=== PATIENT | male | born 1995 | race Caucasian/White ===

== ENCOUNTER → 2024-01-12 | Outpatient (CLI) | payer BC, SELFPAY ==
[2024-01-12 09:45] LABS: Hematocrit 51.3 % (40-54); Hemoglobin 17.4 g/dL (13.0-16.5); Mean Corp Hgb Conc 33.9 g/dL (32-36); Mean Corpuscular Hgb 30.1 pg (27.0-32.0); Mean Corpuscular Volume 88.8 fL (80-94); Mean Platelet Vol. 9.3 fl (6.2-12.0); Platelet Count 348 K/mm3 (150-450); RBC Distribution Width CV 11.9 % (11.6-14.6); RBC Distribution Width SD 38.2 fl (35.1-43.9); Red Blood Count 5.78 M/mm3 (4.6-6.2); White Blood Count 8.5 K/mm3 (4.4-11.0)
[2024-01-12 10:12] LABS: Anion Gap 6 (5-15); BUN 17 mg/dL (7-18); BUN/Creat Ratio 18.7 RATIO (10-20); Calcium,Total 9.4 mg/dL (8.5-10.1); Chloride 106 mmol/L (98-107); Creatinine, Serum 0.91 mg/dL (0.70-1.30); EST Glomerular Filtration Rate 105 mL/min (>60); Est Glom Filt Rate - Afr Amer 127 mL/min (>60); Glucose 99 mg/dL (74-106); LDH 191 U/L (87-241); Potassium 4.1 mmol/L (3.5-5.1); Sodium Level 139 mmol/L (136-145)
[2024-01-13 08:14] LABS: HCG BETA-SUBUNIT QUANT. 182 mIU/mL (0-3)
== END | disposition home or self-care (01) ==
PROVIDERS: Referring Provider Nurse Practitioner; Visit Provider Nurse Practitioner
DX: C62.10 Malignant neoplasm of unspecified descended testis (principal)
CPT/HCPCS: 36415; 80048; 82105; 83615; 84702; 85027

== ENCOUNTER 2024-01-13 14:21 | Day surgery (SDC) | payer BC, SELFPAY ==
[2024-01-13] VITALS (9 sets, daily range): BP systolic 89–135; BP diastolic 49–86; PULSE 72–111; RESP 13–18; TEMP 37.1–37.2; O2SAT 94–100; BMI 33.0
[2024-01-13] MEDS: Lactated Ringers 1,000 ML 15 ML IV (14:43)
--- NOTE | 2024-01-13 14:52 | PCM.PRE.AN2 ---
ASA Classification* ASA Classification ASA Classification: 1 Assessment & Plan Anesthesia* Anesthesia Assessment Anesthesia Assessment: Discussed sedation and/or anesthesia options, risks, benefits, and alternatives with patient/parents/legal guardian/POA. Questions invited. The patient/parents/legal guardian/POA seems to understand and agrees to proceed with anesthesia plan. Reviewed the physical assessment, medical history, allergy history and patient home medications list prior to surgery/procedure/anesthetic and documented any changes. Performed airway and anesthesia risk assessments. Anesthesia Type Anesthesia Type: General History Source History Obtained from:: Patient and Chart Anesthesia Focused Assessment* Temperature: 99.0 F Pulse Rate: 72 Blood Pressure: 135/86 Respiratory Rate: 18 Pulse Ox: 100 Oxygen Delivery Method: Room Air Airway Assessment Mouth opens: >3 cm Mallampati Score: III Teeth Condition: Intact Neck Range of motion (ROM): Full ROM Focused Labs Anesthesia Preop lab: CBC WBC 8.5 K/mm3 (4.4-11.0) 01/12/24 09:24 RBC 5.78 M/mm3 (4.6-6.2) 01/12/24 09:24 Hgb 17.4 g/dL (13.0-16.5) H 01/12/24 09:24 Hct 51.3 % (40-54) 01/12/24 09:24 Plt Count 348 K/mm3 (150-450) 01/12/24 09:24 CHEMISTRY Potassium 4.1 mmol/L (3.5-5.1) 01/12/24 09:24 Sodium 139 mmol/L (136-145) 01/12/24 09:24 BUN 17 mg/dL (7-18) 01/12/24 09:24 Creatinine 0.91 mg/dL (0.70-1.30) 01/12/24 09:24 Glucose 99 mg/dL (74-106) 01/12/24 09:24 COAG Pre-Assessment Diagnosis/Proposed Procedure Planned Operative Procedure(s): right orchiectomy, radical Anesthesia History 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 When Was Last Pacemaker Check QUESTION #4 FULL TEXT: You/Your Family Experience fever (hyperthermia) with Anesthesia Last Oral Intake Last Oral intake: Last Oral Intake NPO since 22:00 01/13/24 14:36 Meds taken in AM with sips of No 01/13/24 14:36 water? Meds patient instructed to take am of surgery PONV PONV - sales operations assistant: PONV - sales operations assistant Female No 01/12/24 11:35 HX of Motion Sickness No 01/12/24 11:35 HX of N/V After Surgery No 01/12/24 11:35 Non-Smoker Yes 01/12/24 11:35 Duration of Surgery greater Yes 01/12/24 11:35 than 60 minutes Number of Risk Factors 2 01/12/24 11:35 PONV Score Moderate Risk 01/12/24 11:35 Height & Weight Height & Weight: Anesthesia: Height & Weight Height 5 ft 8 in 01/13/24 14:36 Weight: 98.6 kg 01/13/24 14:36 Body Mass Index (BMI) 33.0 01/13/24 14:36 Respiratory Assessment Respiratory Assessment - sales operations assistant: Respiratory Tract Infection Hx - sales operations assistant Hx Respiratory Tract Infection No 01/12/24 11:35 STOP Sleep Apnea STOP Sleep Apnea - sales operations assistant: STOP Sleep Apnea - sales operations assistant Hx Hypertension No 01/12/24 11:35 Hx Sleep Apnea No 01/12/24 11:35 CPAP BIPAP Do you snore loudly (louder No 01/12/24 11:35 than talking or can be heard Do you often feel tired/ No 01/12/24 11:35 fatigued/ sleepy during daytime? Has anyone observed you stop No 01/12/24 11:35 breathing during sleep? STOP Results Negative 01/12/24 11:35 QUESTION #5 FULL TEXT : Do you snore loudly (louder than talking or can be heard through closed doors)? Tobacco Use History Tobacco Use History - sales operations assistant: Tobacco Use History - sales operations assistant Tobacco Use Smoking Status Never smoker 01/12/24 11:35 Hx Tobacco Use No 01/12/24 11:35 Years Smoking Packs Smoked per Day Smoking Cessation Date was within the last 15 years Hx Smoking Cessation Date Hx Smoking Cessation Counseling Hematologic Medial History Hematologic Hx - sales operations assistant: Hematologic Medical Hx - rn compliance Hx of Blood Transfusion Yes 01/12/24 11:35 Hx of Transfusion in last 3 No 01/12/24 11:35 Months Date of Last Transfusion (if within last 3 months) Ever experience any problems No 01/12/24 11:35 with transfusion(s)? Specify any problems Hx of Preganancy in last 3 N/A 01/12/24 11:35 Months Nurse Filling Out Transfusion NBUCHER 01/12/24 11:35 & Questions: Date: 01/12/24 01/12/24 11:35 Time: 11:36 01/12/24 11:35 Patient unable to answer at this time (ie. confused, unrespo /Reproduction History /Reproductive History - sales operations assistant: /Reproductive Hx- sales operations assistant Hx Now No 01/12/24 11:35 Gestational Age (in weeks): EDC: Hx Hx Para Hx Section SAB No 01/12/24 11:35 Active Medications Active Medications: Current Medications Generic Name Dose Route Start Last Admin Trade Name Freq PRN Reason Stop Dose Admin Cefazolin Sodium 2 gm/ N/A 20 mls @ 400 mls/hr 01/13/24 16:35 IV 01/13/24 16:37 PREOP ONE Lactated Ringer's 1,000 mls @ 15 mls/hr 01/13/24 14:45 01/13/24 14:43 IV 01/19/24 04:04 15 mls/hr .Q48H MICHELLE Administration Protocol PFSH Medical History Non-smoker Home Medications ?Medication ?Instructions ?Recorded ?Last Taken ?Type NK 01/12/24 Unknown History Allergy/AdvReac Type Severity Reaction Status Date / Time No Known Allergies Allergy Verified 01/12/24 11:35 Surgical History History of neck surgery (~2000) Social History Smoking Status: Never smoker Review of Systems (Anesthesia) ROS Narrative System reviewed and no additional complaints, except as documented.
[2024-01-13] MEDS: Cefazolin 2 GM in Syringe IV (15:20)
--- NOTE | 2024-01-13 15:21 | PCM.HP.STD ---
HPI - General General Date of Service: 01/13/24 Chief Complaint: Right testicular mass HPI Narrative RADHA CANALES, is a 28 M who presented to my office yesterday with a concern for a testicle lump on the right side ultrasound was done in the office that demonstrated solid mass in the right testicle, left testicle was completely normal. We had tumor markers done which came back abnormal. 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 PFS Medical History Non-smoker Home Medications ?Medication ?Instructions ?Recorded ?Last Taken ?Type cephalexin 500 mg capsule 500 mg PO Q8H #15 caps 01/13/24 Unknown Rx docusate sodium 100 mg capsule 100 mg PO BID #20 caps 01/13/24 Unknown Rx (Colace) oxycodone 5 mg tablet 5 mg PO Q6H PRN pain 3 days #14 01/13/24 Unknown Rx tabs Allergy/AdvReac Type Severity Reaction Status Date / Time No Known Allergies Allergy Verified 01/12/24 11:35 Surgical History History of neck surgery (~2000) Social History Smoking Status: Never smoker ROS Constitutional Constitutional: Denies chills, fever(s) or malaise Eyes Eyes: Denies blurry vision or change in vision ENT HEENT: Reports none Cardiovascular Cardiovascular: Denies chest pain or palpitations Respiratory/Chest Respiratory/Chest: Denies cough or shortness of breath with exertion Gastrointestinal Gastrointestinal: Denies abdominal pain, constipation or diarrhea Musculoskeletal Musculoskeletal: Denies back pain, joint stiffness or joint swelling Integumentary Integumentary: Denies dry skin, jaundice, lesions or rash Neurologic Neurologic: Denies confusion, syncope or weakness Psychiatric Psychiatric: Reports none; Denies anxiety or depression Endocrine Endocrinology: Denies excessive sweating, fatigue or flushing Hematologic/Lymphatic Hematologic/Lymphatic: Denies anemia, easy bleeding or easy bruising Vital Signs Vital Signs Vital Signs: 01/13/24 14:36 01/13/24 14:36 01/13/24 14:58 Temperature 99.0 F 99.0 F Temperature Source Temporal Pulse Rate 72 72 Respiratory Rate 18 18 Respiratory Pattern Normal Blood Pressure 135/86 H 135/86 H Blood Pressure Mean 102 Blood Pressure Source Monitor Blood Pressure Position Semi-Fowlers Blood Pressure Location Right Arm Pulse Ox 100 100 Oxygen Delivery Method Room Air Room Air Weight Weight: 98.6 kg Body Mass Index (BMI) 33.0 Physical Exam Narrative solid large mass in right testicle Const alert and oriented x3 General Appearance: cooperative HEENT normocephalic and head/scalp atraumatic Eyes PERRL and EOMs intact bilaterally Neck supple, no JVD and no carotid bruits Resp normal respiratory effort, normal air movement and clear to auscultation bilaterally Cardio regular rate and no murmurs GI normal to inspection, nondistended, normoactive bowel sounds and soft to palpation Extremity normal capillary refill General Extremity: no tenderness to palpation of joints or extremities; Negative for edema Skin no rashes or lesions noted and no wounds General Skin Exam: no breakdown Neuro CN's II-XII intact bilaterally Psych affect normal Appearance: appropriate Results Medical Records Data Attestation: I reviewed the patient's medical records Assessment & Plan Assessment/Plan (1) Testicle lump: PLAN: Plan to proceed with right radical orchiectomy
--- NOTE | 2024-01-13 15:22 | PCM.DC ---
Discharge Instructions Diet Discharge Diet: No restrictions, Light diet - advance as tolerated and Soft diet DC O2, CPAP, BIPAP needs Additional Home O2 Discharge instructions: No Dressing / Incision Discharge Activity: May Not Drive (if having pain.) and May Shower Return to work on:: 02/10/24 May shower in (days): 1 Dressing / Incision Call your doctor if your incision/area has: Increased Pain/ Swelling, Increased Redness, Foul Smelling Discharge and Swelling at the incision site Call your doctor if you observe: Fever of 101 or Higher and Uncontrolled pain Suture Line Care: Avoid Pulling/Pushing and Avoid Pinching/Bending Follow Up Care Please Follow Up With: Maico Membreno MD When: 7 days for a check up Test Results: Test results from this visit will be discussed in further detail at your follow-up appointment, if applicable. Discharge Plan Admission Primary Reason for Your Visit: Radical Right orchiectomy Attending Provider: Maico Membreno Primary Care Provider: Care Physician,No Primary Instructions Patient Instructions: Radical Orchiectomy Print Language: Grenadian Discharge Orders/Prescriptions Prescriptions: New cephalexin 500 mg capsule 500 mg PO Q8H Qty: 15 0RF oxycodone 5 mg tablet 5 mg PO Q6H PRN (Reason: pain) 3 Days Qty: 14 0RF docusate sodium [Colace] 100 mg capsule 100 mg PO BID Qty: 20 0RF Referrals / Follow Up: Maico Membreno MD [Med Staff - Active Staff] - Care Physician,No Primary [Primary Care Provider] - Disposition Disposition (needs filled in before D/C Order can be placed): Home, Self Care
[2024-01-13] MEDS: Bupivacaine Mpf 0.5% 30 ML VIAL (15:52)
--- NOTE | 2024-01-13 16:10 | OP.PCM_ITS ---
Operative Report (Standard) Operative Information Date of Procedure: 01/13/24 Pre-Operative Diagnosis: Right large testicle mass Post-Operative Diagnosis: The same Surgery/Procedure Performed: Right radical orchiectomy e commerce solution architect: No Type of Anesthesia: General RN Documented Start/Stop Times: Operation Date: 01/13/24 16:35 Case Time Into Pre-Op 01/13/24 14:30 Out of Pre-Op 01/13/24 15:17 Anesthesia Start 01/13/24 15:20 Into Room 01/13/24 15:20 Procedure Start 01/13/24 15:35 Procedure End 01/13/24 16:09 Procedure Start Time: 15:35 Procedure Stop Time: 16:10 Select all DRAINS/GRAFTS/IMPLANTS that apply: None Estimated Blood Loss: 5 cc Specimen collected: Yes Description of specimen(s) removed: Right testicle mass Description of surgery: 28-year-old male presented the office with the testicle lump on examination the large mass by ultrasound also to confirm the large mass in the right testicle, exam of the left testicle is normal and ultrasound left testicle is normal, he had preoperative serum tumor markers drawn, AFP, hCG and beta hCG, LDH. 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 Patient was taken back to the operating room after smooth induction of anesthesia he was placed supine on the table, the right inguinal area and groin and scrotum was shaved prepped and draped in usual sterile fashion made a incision in the right groin dissected to the skin dissected through Chris's fa scia using electrocautery to get to under under Chris's fascia and then opened up the inguinal canal identified the inguinal cord and testicle cord going to the right testicle I then freed this up and then was able to deliver the testicle from the scrotum into the inguinal incision and then a high ligation of the performed prior to mobilizing the testicle. I then placed 2 clamps on the spermatic cord transected the cord then suture-ligated the cord with 0 chromic stitch and then freehand tied the cord with 0 silk stitches. Then copiously irrigated the incision use electrocautery to obtain hemostasis there was no sign of bleeding irrigated incision again and then I closed the fascia over the inguinal canal and then closed the Chris's fascia over the top of this and then closed the skin with a running 4-0 Monocryl stitch Steri-Strips were placed dressing was placed fluffs and scrotal support was placed patient anesthetic was reversed taken back to PACU in good condition he will follow-up in the office in about 1 week for follow-up and a postop check and we will plan for referral to medical oncology. Surgical Findings: Large mass in the right testicle removed Complications Complications: No Admit VTE Documentation VTE Present on Admission: No VTE Mechan Device Prophylaxis: SCD's VTE Pharm Prophylaxis ordered?: No
--- NOTE | 2024-01-13 16:29 | PCM.POST.ANE ---
Anesthesia: Postop Eval I Current Vital Signs Temperature: 98.8 F Pulse Rate: 74 Blood Pressure: 90/49 Respiratory Rate: 13 Pulse Ox: 94 Oxygen Delivery Method: Room Air (with 100mm OA) Assessment Airway patent: Yes Spontaneous unlabored respirations: Yes Mental status: Asleep nausea: No Vomiting: No Anesthesia Complication: No Fluid Hydration Crystalloid volume administer (ml): 900 Total IV fluid infused: 900 Progress Note Anesthesia document: Postop Eval 1 completed: Yes
--- NOTE | 2024-01-13 16:35 | TEST_PTH ---
PATIENT: RADHA CANALES LOC: [facility] [place] U#:[id number] AGE/SX: 28/M ROOM: RE01/13/[address]: Dr. 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 No definite lymphovascular invasion identified. Margin negative for tumor. See cancer summary in the comment section. 01/26/2024 COMMENT TESTIS - RADICAL ORCHIECTOMY CANCER SUMMARY: Specimen type - radical orchiectomy Specimen laterality - Right Tumor focality - Unifocal Tumor Size - 8.0 x 5.0 x 4.5c Histologic type - Malignant germ cell tumor: Teratoma - 60%, Seminoma - 20%, Yolk sac tumor - 15%, Embryonal carcinoma - 5% Tumor extension - Tumor limited to testis Margins: Spermatic cord margin - Uninvolved by tumor Other margins - Uninvolved by tumor Lymphovascular invasion - Not identified Regional lymph nodes: No known lymph nodes are submitted or found Distant metastasis - Not applicable Pre-orchiectomy serum tumor markers: Alpha-feto protein evaluation: 5309 ng/ml, N- 0.0-5.7) Beta subunit of human chronic gonadotropin elevation: 182 mIU/ml (N - 0.3) LDH: 191 U/L (N -87-241) Post orchiectomy seum tumor markers: not available Serum tumor markers: LDH - normal limit. HCG - S1 (<5000 units) AFP elevation - S2 (5309 ng/ml) Additional pathologic findings - Germ cell neoplasia in situ. - Extensive tumor necrosis. PATHOLOGIC STAGE: pT1b pNx pMx The above summary is in compliance with [employer] (CAP) Cancer Protocols Checklist and [place] [employer] Committee on Cancer (AJCC), Staging Manual, 8th Ed. The specimen is sent to [facility] for expert opinion, reviewed by Dr. Koch and the above diagnosis is rendered. The complete report is viewable in the patient's EMR. Case has been reviewed in consultation with Dr. Pena who concurs with the above diagnosis. IDC:AM MICROSCOPIC DESCRIPTION Slides are reviewed. GROSS DESCRIPTION Received in fixative is one container labeled with the patient's name and designated Right testicular mass. The specimen consists of a testis with detached spermatic cord and vascular tissue. The testis measures 8.0 x 5.5 x 5.3cm and weighs 64 gm. The distal spermatic cord along with fibrovascular tissue measures 5.0cm in length and 1.5cm in diameter. The external surface is smooth and glistening and is inked. Sections of testis reveal pink-white mass with extensive necrosis that involves approximately 95% of the testis. The mass measures 8.0 x 5.0 x 4.5cm. No extension beyond the tunica vaginalis is identified. Rn Surgery Icu sections are submitted in ten cassettes as follows: 1- spermatic cord and soft tissue with margin of resection, 2-10- tumor. NOTE: Sections are submitted after additional fixation. [facility] 01/17/2024 Additional sections area submitted as follows: 11 - more section spermatic cord, 12 to 14 - additional sections of tumor. [facility] 01/19/2024 TC:0 CPT:05071
[2024-01-13] MEDS: Ketorolac 15 MG/ML Vial IV (16:57)
--- NOTE | 2024-01-13 17:59 | PCM.POSTANE2 ---
Anesthesia Postop Eval I Sum Postop Eval Completion status Anesthesia document: Postop Eval 1 completed: Yes Anesthesia Postop Eval I Summary Anesthesia Postop Eval I Summary: Anesthesia Postop Eval I: Assessment Summary Airway patent Yes 01/13/24 16:30 [email or web address] Spontaneous unlabored Yes 01/13/24 16:30 [email or web address] respirations Mental status Asleep 01/13/24 16:30 [email or web address] nausea No 01/13/24 16:30 [email or web address] Vomiting No 01/13/24 16:30 [email or web address] Anesthesia Postop Eval I: Fluid Summary Crystalloid volume administer 900 01/13/24 16:30 [email or web address] (ml) Colloids volume administered ( ml) Blood Product volume administered (ml) Total IV fluid infused 900 01/13/24 16:30 [email or web address] Anesthesia Postop Eval I: Summary Notes Anesthesia Complication No 01/13/24 16:30 [email or web address] Anesthesia Complication Comment: Post-operative progress note Anesthesia: Postop Eval II Evaluation Mental status: Awake Pain Level: 0 nausea: No Vomiting: No
== END 2024-01-13 18:07 | disposition home or self-care (01) ==
LOC: SDC 14:22 → AC 14:23
PROVIDERS: Referring Provider Urology; Visit Provider Urology
PROC: (CPT 54530; principal; 2024-01-13 16:20)
DX: N50.89 Other specified disorders of the male genital organs (principal)
CPT/HCPCS: 54530; 00926; 88309; J2405

== ENCOUNTER → 2024-01-19 | Outpatient (CLI) | payer BC, SELFPAY ==
--- NOTE | 2024-01-19 11:25 | CT_ITS ---
STUDY: CT CHEST, ABDOMEN T PELVIS WITH CONTRAST REASON FOR EXAM: Male, 28 years old. MALIGNANT NEOPLASM OF TESTIS RADIATION DOSAGE (If Supplied By Facility): CTDIvol = ( 14.85 ) mGy, DLP = ( 1634.46 ) mGycm TECHNIQUE: Transaxial imaging was performed following intravenous administration of IV 100mL Isovue-300. Multiplanar coronal and sagittal images were reformatted. The protocol utilizes one or more of the following dose reduction techniques: automated exposure control, adjustment of mA and/or kV according to patient size,and/or use of iterative reconstruction technique. COMPARISON: No relevant prior comparison study available FINDINGS: CHEST The lungs are normal. There is no demonstrated pleural abnormality. Normal heart and pericardium. There are no coronary artery calcifications. Normal mediastinum. Normal hilar regions. Normal unenhanced pulmonary arteries. Normal aorta arch and descending thoracic aorta. Normal osseous structures. ABDOMEN Normal liver. Normal gallbladder and extrahepatic biliary system. Normal spleen. Normal pancreas. Normal bilateral adrenal glands. Normal right kidney. Normal left kidney. Normal visualized stomach. Normal small intestine. Normal colon. There is non-visualization of the appendix. Normal abdominal aorta. Normal inferior vena cava. Normal retroperitoneum. Normal abdominal wall. Normal osseous structures. PELVIS Normal urinary bladder. There is no pelvic fluid. There is no pelvic lymphadenopathy or mass lesion. Normal visualized pelvic arteries. There is mild stranding within the right inguinal region associated with few subcutaneous foci of air consistent with recent surgical intervention. Normal osseous structures. CT/CT Chest, Abd, Pel w/Contrast IMPRESSION: No evidence of metastases within the chest, abdomen and pelvis. Postsurgical changes within the right inguinal region. Electronically Signed: Jemima Ross MD at 12:45 EST ,
== END | disposition home or self-care (01) ==
PROVIDERS: Referring Provider Nurse Practitioner; Visit Provider Nurse Practitioner
DX: C62.10 Malignant neoplasm of unspecified descended testis (principal)
CPT/HCPCS: 71260; 74177; Q9967

== ENCOUNTER → 2024-03-01 | Outpatient (CLI) | payer BC, SELFPAY ==
[2024-03-02 12:36] LABS: LDH 242 U/L (87-241)
[2024-03-03 04:07] LABS: AFP, Tumor Marker 11.4 ng/mL (0.0-5.7)
[2024-03-03 05:07] LABS: HCG BETA-SUBUNIT QUANT. < 1 mIU/mL (0-3)
== END | disposition home or self-care (01) ==
PROVIDERS: Referring Provider Internal Medicine Hematology & Oncology; Visit Provider Internal Medicine Hematology & Oncology
DX: C62.91 Malignant neoplasm of right testis, unspecified whether descended or undescended (principal)
CPT/HCPCS: 82105; 83615; 84702

== ENCOUNTER → 2024-05-17 | Outpatient (CLI) | payer BC, SELFPAY ==
--- NOTE | 2024-05-17 07:53 | RAD_ITS ---
EXAM: XR Chest, 2 Views CLINICAL INDICATION: F/U TESTICULAR CANCER TECHNIQUE: Frontal and lateral views of the chest. COMPARISON: No relevant prior studies available. FINDINGS: LUNGS AND PLEURAL SPACES: Unremarkable. No consolidation. No pneumothorax. HEART: Unremarkable. No cardiomegaly. MEDIASTINUM: Unremarkable. Normal mediastinal contour. BONES/JOINTS: Unremarkable. No acute fracture. RAD/Chest PA and Lateral IMPRESSION: No acute cardiopulmonary process. Reading Location: [facility]
--- NOTE | 2024-05-17 08:16 | CT_ITS ---
PROCEDURE: ABDOMEN/PELVIS W IV CONT ONLY 05/17/2024 REASON FOR EXAM: F/U TESTICULAR CANCER TECHNIQUE: Abdomen and pelvis CT with intravenous contrast. Coronal and Sagittal reconstruction series were provided. PATIENT PREPARATION: Per protocol ORAL CONTRAST TYPE: None. AMOUNT: mL CONTRAST: Omnipaque 350 VOLUME: 100 mL Not Provided Gauge IV One or more dose reduction techniques were used (e.g., Automated exposure control, adjustment of the mA and/or kV according to patient size, use of iterative reconstruction technique. COMPARISON: None FINDINGS: Lung bases: Unremarkable Liver: Homogeneous attenuation. No focal lesion. Gallbladder: No ductal dilation. No cholelithiasis or wall thickening. Spleen: Normal size. Pancreas: Normal size without evidence of mass surrounding inflammation or ductal dilation. Adrenals: Unremarkable. Kidneys: Normal renal sizes. No hydronephrosis. Bladder: Urinary bladder is unremarkable. Reproductive Organs: Status post right orchiectomy. Bowel: Stomach is unremarkable. No bowel dilation or wall thickening. Moderate colonic stool. Appendix is not visualized. Appendix: The appendix is not identified. There is no inflammatory process identified in the right lower quadrant to suggest appendicitis. Lymph nodes: No suspicious lymph node enlargement. Vasculature: The abdominal aorta and IVC are normal. Peritoneum / Retroperitoneum: No ascites. No pneumoperitoneum. Bones: No suspicious osseous lesions. Soft tissue: Unremarkable CT/Abdomen/Pelvis W IV Cont ONLY IMPRESSION: No evidence of metastatic disease in the abdomen and pelvis. Reading [facility]
== END | disposition home or self-care (01) ==
LOC: CT 07:49
PROVIDERS: Referring Provider Internal Medicine Hematology & Oncology; Visit Provider Internal Medicine Hematology & Oncology
DX: C62.91 Malignant neoplasm of right testis, unspecified whether descended or undescended (principal)
CPT/HCPCS: 71046; 74177; Q9967

== ENCOUNTER → 2024-09-26 | Outpatient (CLI) | payer BC, SELFPAY ==
--- NOTE | 2024-09-26 07:05 | RAD_ITS ---
PROCEDURE: CHEST PA AND LATERAL 09/26/2024 REASON FOR EXAM: F/U TESTICULAR CANCER TECHNIQUE: CHEST PA AND LATERAL COMPARISON: Chest x-ray of 05/17/2024. RAD/Chest PA and Lateral IMPRESSION: Residual contrast material is seen within the visualized portions of the urinar y tract. Lungs appear clear of acute disease. No focal abnormality is noted. The cardiomediastinal silhouette is within the normal range. No pleural effusion or pneumothorax is noted. The cardiomediastinal silhouette is within the normal range, and unchanged. No significant osseous abnormality is seen. Negative examination. Reading Location: [place] [id number]
--- NOTE | 2024-09-26 07:05 | CT_ITS ---
PROCEDURE: ABDOMEN/PELVIS W IV CONT ONLY 09/26/2024 REASON FOR EXAM: F/U right TESTICULAR CANCER TECHNIQUE: ABDOMEN/PELVIS W IV CONT ONLY Coronal and Sagittal reconstruction series were provided. One or more dose reduction techniques were used (e.g., Automated exposure control, adjustment of the mA and/or kV according to patient size, use of iterative reconstruction technique. RADIATION DOSE SUMMARY: CTDlvol: 32.01 mGy DLP: 1347.43 mGycm COMPARISON: CT examination of 05/17/2024 FINDINGS: Lung bases: Unremarkable Liver: Normal size. No mass. Gallbladder: Unremarkable. Spleen: Normal size. Pancreas: Normal size without evidence of mass surrounding inflammation or ductal dilation. Adrenals: Unremarkable. Kidneys: Normal renal sizes. No hydronephrosis. Bladder: Unremarkable. Bowel: No bowel obstruction. Appendix: The appendix is not identified. There is no inflammatory process identified in the right lower quadrant to suggest appendicitis. Lymph nodes: No suspicious lymph node enlargement. Vasculature: The abdominal aorta and IVC are normal. Peritoneum / Retroperitoneum: No free fluid is seen. Bones: Unremarkable. CT/Abdomen/Pelvis W IV Cont ONLY IMPRESSION: No evidence of malignancy or adenopathy. No acute process is seen. Reading Location: [place] [id number]
--- OUTSIDE RECORDS SUMMARY | 2024-09-26 07:10 | XMS RPT_ITS | CCD ---
Author Organization [facility] [facility] Care Team Providers Care Foot Caster Name Role Phone Unavailable Primary Care Provider Unavailabl e Care Physician, No Primary Primary Care Provider Unavailable Shaquille PHELAN, Dr. Patel Attending Provider Haseeb PHELAN, Dr. Maico Ha Referring Provider Care Physician, No Primary Referring Provider Un available Dr. Jorge Corbin MD Referring Provider [phone] Care Physician, No Primary Primary Care Unava ilable Isckarus, Jorge Attending Unavailable Isckar, Jorge Referring Unavailable Care Physician, No Primary Primary Care Unava ilable Isckarus, Jorge Attending Unavailable Care Physician, No Primary Referring Unava ilable Isckarus, Jorge Referring Unavailable Care Physician, No Primary Primary Care Unava ilable Isckarus, Jorge Attending Unavailable Care Physician, No Primary Primary Care Unava ilable Isckarus, Jorge Attending Unavailable Isckarus, Jorge Referring Unavailable Boxford, Helen Attending Unavailable Boxford, Helen Referring Unavailable Care Physician, No Primary Primary Care Unava ilable Boxford, Helen Attending Unavailable Boxford, Helen Referring Unavailable Care Physician, No Primary Primary Care Unava ilable Maico Membreno Attending Unavailable Maico Membreno Referring Unavailable Care Physician, No Primary Primary Care Unava ilable Care Physician, No Primary Primary Care Unava ilable Isckarus, Jorge Attending Unavailable Maico Membreno Referring Unavailable Care Physician, No Primary Referring Unava ilable Care Physician, No Primary Primary Care Unava ilable Isckarus, Jorge Attending Unavailable Care Physician, No Primary Referring Unava ilable Isckarus, Jorge Attending Unavailable Care Physician, No Primary Primary Care Unava ilable Care Physician, No Primary Primary Care Unava ilable Kennedi Hickman Attending Unavailable Jorge Corbin Attending Unavailable Care Physician, No Primary Primary Care Unava ilable Care Physician, No Primary Referring Unava ilable Care Physician, No Primary Primary Care Provider Unavailable Care Physician, No Primary Referring Provider Un available Shaquille PHELAN, Dr. Patel Attending Provider [phone] Dr. Jorge Corbin MD Referring Provider [phone] Medications Current Medications Medication Drug Class(es) Dates Sig (Normalized) Sig (Original) amoxicillin 875 mg oral tablet (1 source) Penicillin-class Antibacterial Start: 01-31-2024 End: 02-07-2024 take 1 tablet by mouth twice daily amoxicillin (AMOXIL) 875 mg tablet Take 1 tablet by mouth two times a day for 7 days. 14 tablet 01/31/2024 02/07/2024 Active loratadine 10 mg oral tablet (2 sources) Start: 02-15-2024 take 1 capsule by mouth once daily Loratadine (Allergy Relief (Loratadine)) 10 mg capsule Active 10 mg PO daily February 15, 2024 1:00am Completed/Discontinued Medications Medication Drug Class(es) Dates Sig (Normalized) Sig (Original) cephalexin 500 mg oral capsule (2 sources) Cephalosporin Antibacterial Start: 01-13-2024 End: 02-15-2024 take 1 capsule by mouth every eight hours Cephalexin 500 mg capsule Discontinued 500 mg PO Q8H January 13, 2024 1:00am February 15, 2024 12:53pm docusate sodium 100 mg oral capsule (2 sources) Start: 01-13-2024 End: 01-26-2024 take 1 capsule by mouth twice daily Docusate Sodium (Colace) 100 mg capsule Discontinued 100 mg PO TWICE A DAY January 13, 2024 1:00am January 26, 2024 10:33am fluticasone propionate 0.05 mg/actuat metered dose nasal spray (3 sources) Corticosteroid Start: 02-15-2024 End: 07-11-2024 take 50 ug nasal route once daily Fluticasone Propionate (Flonase Allergy Relief) 50 mcg/actuation spray,suspension Discontinued 1 NMA INTRANASAL daily February 15, 2024 1:00am July 11, 2024 11:39am administer into each nostril Start: 01-19-2016 take 2 spray(s) by m out once daily fluticasone (FLONASE) 50 mcg/actuation nasal spray Indications: Dysfunction of Eustachian tube, bilateral Use 2 Sprays in each nostril once daily. Rinse mouth after use. 1 Bottle 11 01/19/2016 Active oxyCODONE hydrochloride 5 mg oral tablet (2 sources) Opioid Agonist Start: 01-13-2024 End: 01-26-2024 take 1 tablet by mouth every six hours as needed for pain Oxycodone 5 mg tablet Discontinued 5 mg PO EVERY 6 HOURS as needed for pain 14 3 January 13, 2024 January 26, 2024 10:33am Problems Active Problems Problem Classification Problem Date Documented Da te Episodic/Chronic Cancer of testis (12 sources) Non-seminomatous germ cell neoplasm of testis; Translations: [Malignant neoplasm of unspecified testis, unspecified whether descended or undescended] Onset: 02-21-2024 01-26-2024 Chronic Mood disorders (1 source) Depressive disorder; Translations: [Depression] Onset: 11-08-2011 11-08-2011 Chronic Otitis media and related conditions (1 source) Acute non-suppurative otitis media - serous; Translations: [Acute serous otitis media, left ear] 01-31-2024 Episodic Past or Other Problems Problem Classification Problem Date Documented Da te Episodic/Chronic Other male genital disorders (1 source) Other specified disorders of the male genital organs; Translations: [Other specified disorders of the male genital organs] Onset: 01-13-2024 Episodic Results Test Name Value Interpretation Reference Range Facility Oncology Visit Reporton Oncology Visit Report [facility] [address] [place] [address] OFFICE VISIT Date of Service: 07/11/24 1137 MR#: [id number] Acct: [id number] Name: PARKERRADHA JOLLY Rep #: [id number] : 1995 From: Jorge Corbin MD Age/Sex: 28/M [place] [facility] [place]: Signed HPI Subjective Date of Service 07/11/24 Chief Complaint Testicular cancer follow-up History of Present Illness 28-year-old male who presented with a progressively enlarging right testicular mass over the course of 6 months. Testicular ultrasound confirmed a solid mass. Preoperative tumor markers alpha-fetoprotein and bHCG were elevated, LDH was normal (see lab section) January 13, 2024 right radical orchiectomy: Full pathology report is pending. [facility] IHC consistent with a malignant germ cell tumor composed of teratoma (60%), seminoma (20%), yolk sac tumor (15%) and embryonal carcinoma (5%), germ cell neoplasia in situ was present, no definite lymphovascular invasion identified and margins were negative. January 19, 2024 CT chest abdomen and pelvis: IMPRESSION: No evidence of metastases within the chest, abdomen and pelvis. Postsurgical changes within the right inguinal region. 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 Social History Smoking Status: Never smoker alcohol intake: never ROS Constitutional Constitutional: Reports systems reviewed and no addt'l complaints, except as documented; Denies fatigue, fever(s) or weight loss Eyes Eyes: Reports systems reviewed and no addt'l complaints, except as documented ENT HEENT: Reports systems reviewed and no addt'l complaints, except as documented Cardiovascular Cardiovascular: Reports systems reviewed and no addt'l complaints, except as documented; Denies chest pain or edema Respiratory/Chest Respiratory/Chest: Reports systems reviewed and no addt'l complaints, except as documented; Denies cough or dyspnea Gastrointestinal Gastrointestinal: Reports systems reviewed and no addt'l complaints, except as documented and other Details: Had diarrhea while on antibiotics. ; Denies change in bowel habits Genitourinary Genitourinary: Reports systems reviewed and no addt'l complaints, except as documented and other Details: Right inguinal swelling and discomfort postop Musculoskeletal Musculoskeletal: Reports systems reviewed and no addt'l complaints, except as documented; Denies back pain Integumentary Integumentary: Reports systems reviewed and no addt'l complaints, except as documented; Denies new lesions Neurologic Neurologic: Reports systems reviewed and no addt'l complaints, except as documented; Denies focal weakness or paresthesias Psychiatric Psychiatric: Reports systems reviewed and no addt'l complaints, except as documented Endocrine Endocrinology: Reports systems reviewed and no addt'l complaints, except as documented Hematologic/Lymphatic Hematologic/Lymphatic: Reports systems reviewed and no addt'l complaints, except as documented Allergic/Immunologic Allergic/Immunologic: Reports systems reviewed and no addt'l complaints, except as documented Intake Vital Signs 04/19/24 13:21 07/11/24 11:38 07/11/24 11:39 Height 5 ft 8 in 5 ft 8 in 5 ft 8 in Weight: 102.682 kg 109.316 kg BMI 34.4 36.6 BP 116/76 121/76 H Blood Pressure Location Lt brachial Lt brachial Position Sitting Sitting Respiration 18 18 Pulse 60 74 Pulse Source Monitor Monitor Temp 98.6 F 98.4 F Temperature Source Temporal Artery Temporal Artery Pulse Oximetry (%) 98 96 Oxygen Delivery Method room air room air Intake Is patient in pain?: No Allergies No Known Allergies Allergy (Verified 07/11/24 11:39) Medications ???Medication ???Instructions ???Recorded ???Confirmed ???Type loratadine 10 mg capsule (Allergy 10 mg PO QDAY 02/15/24 07/11/24 H istory Relief (loratadine)) Have you fallen in the past year?: No Central Venous Access Central Venous Access: No Laboratory Tests 01/12/24 01/26/24 02/02/24 09:24 10:12 13:45 Lactate Dehydrogenase 191 151 209 Tumor Marker AFP 5309.0 H 616.0 H 259.0 H HCG Beta Subunit 182 H 1 < 1 02/09/24 02/15/24 02/23/24 09:39 11:15 15:52 Lactate Dehydrogenase 160 161 176 Tumor Marker AFP 128.0 H 56.5 H 23.3 H HCG Beta Subunit < 1 < 1 < 1 03/01/24 03/07/24 03/14/24 16:37 09:45 10:37 Lactate Dehydrogenase 242 H 230 Tumor M (more content not included)... Normal [facility] AFP, Tumor Markeron 07-06-19 AFP TUMOR CARL 2.9 ng/mL Normal 0.0-5.7 [facility] Comment on above: Order Comment: N Result Comment: [facility] Electrochemiluminescence Immunoassay (ECLIA) Values obtained with different assay methods or kits cannot be used interchangeably. Results cannot be interpreted as absolute evidence of the presence or absence of malignant disease. This test is not interpretable in females. Performed at: [address] [id number] Repeat Chief: Reyes Khoury PhD, Phone: [phone] Performed By: #### L 3300.0700, L504.2610, L3100.5140 #### [facility] [address] [place], [place], [id number] HCG BETA-SUBUNIT QUANT.on HCG B-SUBUNIT < 1 Normal 0-3 [facility] Comment on above: Result Comment: [facility] ECLIA methodology Performed at: [address] [id number] Repeat Chief: Reyes Khoury PhD, Phone: [phone] Performed By: #### L 3300.0700, L504.2610, L3100.5140 #### [facility] [address] [place], [place], [id number] LDHon 07-04-2024 LDH 170 U/L Normal 87-241 [facility] Comment on above: Order Comment: 1 Performed By: #### L 3300.0700, L504.2610, L3100.5140 #### [facility] [address] [place], [address] Lactate dehydrogenase (LDH) measurementOrdered By: Jorge Corbin on 07-04-2024 LDH [Catalytic activity/Vol] 170 U/L 87-241 [facility] Abdomen/Pelvis W IV Cont ONL Yon 05-17-2024 Abdomen/Pelvis W IV Cont ONLY [facility] Imaging Services [address] [place], [place] [address] Abdomen/Pelvis W IV Cont ONLY MR#: [id number] Acct: [id number] Name: RADHA CALDERON Rep #: [id number] : 1995 M 28 From: Hebert duval MD PCP: Care Physician,No Primary Status: DEP CLI Study: Abdomen/Pelvis W IV Cont ONLY Date of Exam: Exam# [id number] Ordering Dr: Jorge Corbin MD ADDENDUM by Dr. Hebert Whitmore MD on 05/27/24 at 0938 Comparison made to the CT of the chest, abdomen and pelvis from 01/19/2024 Reading Location: [facility] 05/27/24 0938 Date cc: Dr. Jorge Corbin MD; No Primary Care Physician * Signed PROCEDURE: ABDOMEN/PELVIS W IV CONT ONLY 05/17/2024 REASON FOR EXAM: F/U TESTICULAR CANCER TECHNIQUE: Abdomen and pelvis CT with intravenous contrast. Coronal and Sagittal reconstruction series were provided. PATIENT PREPARATION: Per protocol ORAL CONTRAST TYPE: None. AMOUNT: mL CONTRAST: Omnipaque 350 VOLUME: 100 mL Not Provided Gauge IV One or more dose reduction techniques were used (e.g., Automated exposure control, adjustment of the mA and/or kV according to patient size, use of iterative reconstruction technique. COMPARISON: None FINDINGS: Lung bases: Unremarkable Liver: Homogeneous attenuation. No focal lesion. Gallbladder: No ductal dilation. No cholelithiasis or wall thickening. Spleen: Normal size. Pancreas: Normal size without evidence of mass surrounding inflammation or ductal dilation. Adrenals: Unremarkable. Kidneys: Normal renal sizes. No hydronephrosis. Bladder: Urinary bladder is unremarkable. Reproductive Organs: Status post right orchiectomy. Bowel: Stomach is unremarkable. No bowel dilation or wall thickening. Moderate colonic stool. Appendix is not visualized. Appendix: The appendix is not identified. There is no inflammatory process identified in the right lower quadrant to suggest appendicitis. Lymph nodes: No suspicious lymph node enlargement. Vasculature: The abdominal aorta and IVC are normal. Peritoneum / Retroperitoneum: No ascites. No pneumoperitoneum. Bones: No suspicious osseous lesions. Soft tissue: Unremarkable CT/Abdomen/Pelvis W IV Cont ONLY IMPRESSION: No evidence of metastatic disease in the abdomen and pelvis. Reading Location: [facility] CC: Dr. Jorge Corbin MD; No Primary Care Physician Massage Operator: Signed Normal [facility] Chest PA and Lateralon 05-17 Chest PA and Lateral [facility] [address] [place] [address] Chest PA and Lateral MR#: [id number] Acct: [id number] Name: RADHA CALDERON Rep #: [id number] : 1995 M 28 From: aCrl Hoyos MD PCP: Care Physician,No Primary Status: REG CLI Study: Chest PA and Lateral Date of Exam: 05/17/24 Exam# [id number] Ordering Dr: Jorge Corbin MD EXAM: XR Chest, 2 Views CLINICAL INDICATION: F/U TESTICULAR CANCER TECHNIQUE: Frontal and lateral views of the chest. COMPARISON: No relevant prior studies available. FINDINGS: LUNGS AND PLEURAL SPACES: Unremarkable. No consolidation. No pneumothorax. HEART: Unremarkable. No cardiomegaly. MEDIASTINUM: Unremarkable. Normal mediastinal contour. BONES/JOINTS: Unremarkable. No acute fracture. RAD/Chest PA and Lateral IMPRESSION: No acute cardiopulmonary process. Reading Location: [facility] CC: Dr. Jorge Corbin MD; No Primary Care Physician Massage Operator: Signed Normal [facility] Oncology Visit Reporton 04-07 Oncology Visit Report [facility] [address] [facility] [place] [address] OFFICE VISIT Date of Service: 04/19/24 1318 MR#: [id number] Acct: [id number] Name: RADHA CALDERON Rep #: [id number] : 1995 From: Jorge Corbin MD Age/Sex: 28/M Location: [facility] Status: Signed HPI Subjective Date of Service 04/19/24 Chief Complaint Testicular cancer follow-up History of Present Illness 28-year-old male who presented with a progressively enlarging right testicular mass over the course of 6 months. Testicular ultrasound confirmed a solid mass. Preoperative tumor markers alpha-fetoprotein and bHCG were elevated, LDH was normal (see lab section) January 13, 2024 right radical orchiectomy: Full pathology report is pending. [facility] IHC consistent with a malignant germ cell tumor composed of teratoma (60%), seminoma (20%), yolk sac tumor (15%) and embryonal carcinoma (5%), germ cell neoplasia in situ was present, no definite lymphovascular invasion identified and margins were negative. January 19, 2024 CT chest abdomen and pelvis: IMPRESSION: No evidence of metastases within the chest, abdomen and pelvis. Postsurgical changes within the right inguinal region. 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 Social History Smoking Status: Never smoker alcohol intake: never ROS Constitutional Constitutional: Reports systems reviewed and no addt'l complaints, except as documented; Denies fatigue, fever(s) or weight loss Eyes Eyes: Reports systems reviewed and no addt'l complaints, except as documented ENT HEENT: Reports systems reviewed and no addt'l complaints, except as documented Cardiovascular Cardiovascular: Reports systems reviewed and no addt'l complaints, except as documented; Denies chest pain or edema Respiratory/Chest Respiratory/Chest: Reports systems reviewed and no addt'l complaints, except as documented; Denies cough or dyspnea Gastrointestinal Gastrointestinal: Reports systems reviewed and no addt'l complaints, except as documented and other Details: Had diarrhea while on antibiotics. ; Denies change in bowel habits Genitourinary Genitourinary: Reports systems reviewed and no addt'l complaints, except as documented and other Details: Right inguinal swelling and discomfort postop Musculoskeletal Musculoskeletal: Reports systems reviewed and no addt'l complaints, except as documented; Denies back pain Integumentary Integumentary: Reports systems reviewed and no addt'l complaints, except as documented; Denies new lesions Neurologic Neurologic: Reports systems reviewed and no addt'l complaints, except as documented; Denies focal weakness or paresthesias Psychiatric Psychiatric: Reports systems reviewed and no addt'l complaints, except as documented Endocrine Endocrinology: Reports systems reviewed and no addt'l complaints, except as documented Hematologic/Lymphatic Hematologic/Lymphatic: Reports systems reviewed and no addt'l complaints, except as documented Allergic/Immunologic Allergic/Immunologic: Reports systems reviewed and no addt'l complaints, except as documented Intake Vital Signs 03/14/24 12:02 04/19/24 13:20 04/19/24 13:21 Height 5 ft 8 in 5 ft 8 in 5 ft 8 in Weight: 102.682 kg BMI 34.4 BP 116/76 Blood Pressure Location Lt brachial Position Sitting Respiration 18 Pulse 60 Pulse Source Monitor Temp 98.6 F Temperature Source Temporal Artery Pulse Oximetry (%) 98 Oxygen Delivery Method room air Intake Is patient in pain?: No Allergies No Known Allergies Allergy (Verified 04/19/24 13:21) Medications ???Medication ???Instructions ???Recorded ???Confirmed ???Type fluticasone propionate 50 1 spray intranasal QDAY 02/15/24 0 04/19/24 History mcg/actuation nasal spray,suspension (Flonase Allergy Relief) loratadine 10 mg capsule (Allergy 10 mg PO QDAY 02/15/24 04/19/24 H istory Relief (loratadine)) Have you fallen in the past year?: No Central Venous Access Central Venous Access: No Laboratory Tests 01/12/24 01/26/24 02/02/24 09:24 10:12 13:45 Lactate Dehydrogenase 191 151 209 Tumor Marker AFP 5309.0 H 616.0 H 259.0 H HCG Beta Subunit 182 H 1 < 1 02/09/24 02/15/24 02/23/24 09:39 11:15 15:52 Lactate Dehydrogenase 160 161 176 Tumor Marker AFP 128.0 H 56.5 H 23.3 H HCG Beta Subunit < 1 < 1 < 1 03/01/24 03/07/24 03/14/24 16 (more content not included)... Normal [facility] AFP, Tumor Markeron 04-14-19 AFP TUMOR CARL 2.7 ng/mL Normal 0.0-5.7 [facility] Comment on above: Order Comment: N Result Comment: [facility] Electrochemiluminescence Immunoassay (ECLIA) Values obtained with different assay methods or kits cannot be used interchangeably. Results cannot be interpreted as absolute evidence of the presence or absence of malignant disease. This test is not interpretable in females. Performed at: [address] [id number] Repeat Chief: Reyes Khoury PhD, Phone: [phone] Performed By: #### L 3300.0700, L504.2610, L3100.5140 #### [facility] [address] [place], [address] HCG BETA-SUBUNIT QUANT.on HCG B-SUBUNIT < 1 Normal 0-3 [facility] Comment on above: Result Comment: [facility] ECLIA methodology Performed at: [address] [id number] Repeat Chief: Reyes Khoury PhD, Phone: [phone] Performed By: #### L 3300.0700, L504.2610, L3100.5140 #### [facility] [address] [place], [address] Alpha fetoprotein measuremen t as tumor markerOrdered By: Jorge Corbin on 04-12-2024 Tumor Marker Alpha Fetoprotein 2.7 ng/mL 0.0-5.7 [facility] Comment on above: [facility] El ectrochemiluminescence Immunoassay(ECLIA)Values obtained with different assay methods or kits cannotbe used interchangeably. Results cannot be interpreted asabsolute evidence of the presence or absence of malignantdisease.This test is not interpretable in females.Performed at: [address] [id number] Director: Reyes Khoury PhD, Phone: [phone] HCG, beta, subunitOrdered By : Jorge Corbin on 04-12-2024 HCG Beta Subunit < 1 mIU/mL 0-3 [facility] Comment on above: [facility] ECLIA methodol ogyPerformed at: [address] [id number] Director: Reyes Khoury PhD, Phone: [phone] LDHon 04-12-2024 LDH 183 U/L Normal 87-241 [facility] Comment on above: Order Comment: 1 Result Comment: Hemo lysis present, Results??could be affected. ?? Performed By: #### L 3300.0700, L504.2610, L3100.5140 #### [facility] [address] [facility] [place], [address] Lactate dehydrogenase (LDH) measurementOrdered By: Jorge Corbin on 04-12-2024 LDH [Catalytic activity/Vol] 183 U/L 87-241 [facility] Comment on above: Hemolysis present, R esults could be affected. AFP, Tumor Markeron 03-30-19 AFP TUMOR CARL 3.4 ng/mL Normal 0.0-5.7 [facility] Comment on above: Order Comment: NN Result Comment: [facility] Electrochemiluminescence Immunoassay (ECLIA) Values obtained with different assay methods or kits cannot be used interchangeably. Results cannot be interpreted as absolute evidence of the presence or absence of malignant disease. This test is not interpretable in females. Performed at: [facility] [address] [id number] Repeat Chief: Reyes Khoury PhD, Phone: [phone] Performed By: #### L 3300.0700, L504.2610, L3100.5140 #### [facility] [address] [facility]. [place], [place], [id number] HCG BETA-SUBUNIT QUANT.on HCG B-SUBUNIT < 1 Normal 0-3 [facility] Comment on above: Result Comment: [facility] ECLIA methodology Performed at: [address] [id number] Repeat Chief: Reyes Khoury PhD, Phone: [phone] Performed By: #### L 3300.0700, L504.2610, L3100.5140 #### [facility] [address] [place], [place], [id number] LDHon 03-29-2024 LDH 189 U/L Normal 87-241 [facility] Comment on above: Order Comment: N1 Result Comment: Slig ht Hemolysis, Result may be falsely increased. Performed By: #### L 3300.0700, L504.2610, L3100.5140 #### [facility] [address] [place], [place], [id number] AFP, Tumor Markeron 03-15-19 25 AFP TUMOR CARL 4.9 ng/mL Normal 0.0-5.7 [facility] Comment on above: Order Comment: N Result Comment: [facility] Electrochemiluminescence Immunoassay (ECLIA) Values obtained with different assay methods or kits cannot be used interchangeably. Results cannot be interpreted as absolute evidence of the presence or absence of malignant disease. This test is not interpretable in females. Performed at: [employer] [id number] Repeat Chief: Reyes Khoury PhD, Phone: [phone] Performed By: #### L 3300.0700, L504.2610, L3100.5140 #### [facility] [address] [place], [place], [id number] HCG BETA-SUBUNIT QUANT.on HCG B-SUBUNIT < 1 Normal 0-3 [facility] Comment on above: Result Comment: [facility] ECLIA methodology Performed at: [facility] [email or web address] [address] [id number] Repeat Chief: Reyes Khoury PhD, Phone: [phone] Performed By: #### L 3300.0700, L504.2610, L3100.5140 #### [facility] [address] [place], [address] LDHon 03-14-2024 LDH 161 U/L Normal 87-241 [facility] Comment on above: Order Comment: 1 Performed By: #### L 3300.0700, L504.2610, L3100.5140 #### [facility] [address] [place], [address] Oncology Visit Reporton Oncology Visit Report [facility] [address] [place] [address] OFFICE VISIT Date of Service: 03/14/24 1130 MR#: [id number] Acct: [id number] Name: RADHA CALDERON Rep #: [id number] : 1995 From: Jorge Corbin MD Age/Sex: 28/M Location: [facility] Status: Signed HPI Subjective Date of Service 03/14/24 Chief Complaint Testicular cancer History of Present Illness 28-year-old male who presented with a progressively enlarging right testicular mass over the course of 6 months. Testicular ultrasound confirmed a solid mass. Preoperative tumor markers alpha-fetoprotein and bHCG were elevated, LDH was normal (see lab section) January 13, 2024 right radical orchiectomy: Full pathology report is pending. [facility]Path IHC consistent with a malignant germ cell tumor composed of teratoma (60%), seminoma (20%), yolk sac tumor (15%) and embryonal carcinoma (5%), germ cell neoplasia in situ was present, no d efinite lymphovascular invasion identified and margins were negative. January 19, 2024 CT chest abdomen and pelvis: IMPRESSION: No evidence of metastases within the chest, abdomen and pelvis. Postsurgical changes within the right inguinal region. 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 Social History Smoking Status: Never smoker alcohol intake: never ROS ROS Narrative Feels well Intake Vital Signs 02/15/24 11:55 03/14/24 11:31 03/14/24 11:32 Height 5 ft 8 in 5 ft 8 in 5 ft 8 in Weight: 98.43 kg 101.605 kg BMI 33.0 34.0 BP 122/75 H 125/73 H Blood Pressure Location Lt brachial Lt brachial Position Sitting Sitting Respiration 16 16 Pulse 72 66 Pulse Source Monitor Monitor Temp 97.5 F L 98.8 F Temperature Source Temporal Artery Temporal Artery Pulse Oximetry (%) 97 97 Oxygen Delivery Method room air room air Intake Is patient in pain?: No Allergies No Known Allergies Allergy (Verified 03/14/24 11:32) Medications ???Medication ???Instructions ???Recorded ???Confirmed ???Type fluticasone propionate 50 1 spray intranasal QDAY 02/15/24 0 03/14/24 History mcg/actuation nasal spray,suspension (Flonase Allergy Relief) loratadine 10 mg capsule (Allergy 10 mg PO QDAY 02/15/24 03/14/24 H istory Relief (loratadine)) Have you fallen in the past year?: No Central Venous Access Central Venous Access: No Laboratory Tests 01/12/24 01/26/24 02/02/24 09:24 10:12 13:45 Lactate Dehydrogenase 191 151 209 Tumor Marker AFP 5309.0 H 616.0 H 259.0 H HCG Beta Subunit 182 H 1 < 1 02/09/24 02/15/24 02/23/24 09:39 11:15 15:52 Lactate Dehydrogenase 160 161 176 Tumor Marker AFP 128.0 H 56.5 H 23.3 H HCG Beta Subunit < 1 < 1 < 1 03/01/24 03/07/24 03/14/24 16:37 09:45 10:37 Lactate Dehydrogenase 242 H 230 161 Tumor Marker AFP 11.4 H 7.9 H Pending HCG Beta Subunit < 1 < 1 Exam Physical Exam Narrative ECOG 0 Const alert, oriented x3, no apparent distress and healthy appearing Coding Level of Care Code Off vis,est,level 3 Exam Problem Focused Diagnoses Non-seminomatous testicular cancer C62.90 Assessment and Plan Assessment and Plan (1) Non-seminomatous testicular cancer: Status: Acute Orders: Orders LDH 04/12/24 C62.91 - Malignant neoplasm of right testis, unspecified whether descended or undescended AFP, Tumor Marker 04/12/24 C62.91 - Malignant neoplasm of right testis, unspecified whether descended or undescended HCG BETA-SUBUNIT QUANT. 04/12/24 C62.91 - Malignant neoplasm of right testis, unspecified whether descended or undescended LDH 03/29/24 C62.91 - Malignant neoplasm of right testis, unspecified whether descended or undescended AFP, Tumor Marker 03/29/24 C62.91 - Malignant neoplasm of right testis, unspecified whether descended or undescended HCG BETA-SUBUNIT QUANT. 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 Patient denied any use of marijuana in the past which can interfere with tumor marker measurements. His tumor marker is steadily declining. Plan: Unless otherwise needed updating from pending final pathology report and normalization of tumor marker, based on NCCN guide (more content not included)... Normal [facility] AFP, Tumor Markeron 03-08-19 AFP TUMOR CARL 7.9 ng/mL High 0.0-5.7 [facility] Comment on above: Order Comment: N Result Comment: [facility] Electrochemiluminescence Immunoassay (ECLIA) Values obtained with different assay methods or kits cannot be used interchangeably. Results cannot be interpreted as absolute evidence of the presence or absence of malignant disease. This test is not interpretable in females. Performed at: [address] [id number] Repeat Chief: Reyes Khoury PhD, Phone: [phone] Performed By: #### L 5578.0798, L548.9783, F4100.5149 #### [facility] [address] [place], [address] HCG BETA-SUBUNIT QUANT.on HCG B-SUBUNIT < 1 Normal 0-3 [facility] Comment on above: Result Comment: [facility] ECLIA methodology Performed at: [facility] [address] [id number] Repeat Chief: Reyes Khoury PhD, Phone: [phone] Performed By: #### L 3300.0700, L504.2610, L3100.5140 #### [facility] [address] [place], [address] LDHon 03-07-2024 LDH 230 U/L Normal 87-241 [facility] Comment on above: Order Comment: 1 Result Comment: Mode rate Hemolysis, Result may be falsely increased. Performed By: #### L 3300.0700, L3100.5140 #### [facility] [address] [place], [address] AFP, Tumor Markeron 03-03-19 25 AFP TUMOR CARL 11.4 ng/mL High 0.0-5.7 [facility] Comment on above: Order Comment: N Result Comment: [facility] Electrochemiluminescence Immunoassay (ECLIA) Values obtained with different assay methods or kits cannot be used interchangeably. Results cannot be interpreted as absolute evidence of the presence or absence of malignant disease. This test is not interpretable in females. Performed at: [facility] [id number] Repeat Chief: Reyes Khoury PhD, Phone: [phone] Performed By: #### L 3300.0700, L3100.5140 #### [facility] [address] [place], [place], [id number] HCG BETA-SUBUNIT QUANT.on HCG B-SUBUNIT < 1 Normal 0-3 [facility] Comment on above: Result Comment: [facility] [employer] ECLIA methodology Performed at: [facility] [address] [id number] Repeat Chief: Reyes Khoury PhD, Phone: [phone] Performed By: #### L 3300.0700, L3100.5140 #### [facility] [address] [place], [address] LDHon 03-02-2024 LDH 242 U/L High 87-241 [facility] Comment on above: Order Comment: 1 Performed By: #### L 504.2610 #### [facility] [address] [place], [place], [id number] Alpha fetoprotein measuremen t as tumor markerOrdered By: Jorge Corbin on 03-01-2024 Tumor Marker Alpha Fetoprotein 11.4 ng/mL High 0.0-5.7 [facility] Comment on above: [facility] El ectrochemiluminescence Immunoassay(ECLIA)Values obtained with different assay methods or kits cannotbe used interchangeably. Results cannot be interpreted asabsolute evidence of the presence or absence of malignantdisease.This test is not interpretable in females.Performed at: [facility] [id number] Director: Reyes Khoury PhD, Phone: [phone] HCG, beta, subunitOrdered By : Jorge Corbin on 03-01-2024 HCG Beta Subunit < 1 mIU/mL 0-3 [facility] Comment on above: [employer] ECLIA methodol ogyPerformed at: [facility] [id number] Director: Reyes Khoury PhD, Phone: [phone] Lactate dehydrogenase (LDH) measurementOrdered By: Jorge Corbin on 03-01-2024 LDH [Catalytic activity/Vol] 242 U/L High 87-241 [facility] AFP, Tumor Markeron 02-24-19 25 AFP TUMOR CARL 23.3 ng/mL High 0.0-5.7 [facility] Comment on above: Order Comment: N Result Comment: [employer] [facility] Electrochemiluminescence Immunoassay (ECLIA) Values obtained with different assay methods or kits cannot be used interchangeably. Results cannot be interpreted as absolute evidence of the presence or absence of malignant disease. This test is not interpretable in females. Performed at: [facility] [id number] Repeat Chief: Reyes Khoury PhD, Phone: [phone] Performed By: #### L 3300.0700, L3100.5140 #### [facility] [address] [place], [address] HCG BETA-SUBUNIT QUANT.on HCG B-SUBUNIT < 1 Normal 0-3 [facility] Comment on above: Result Comment: [employer] ECLIA methodology Performed at: [address] [id number] Repeat Chief: Reyes Khoury PhD, Phone: [phone] Performed By: #### L 3300.0700, L3100.5140 #### [facility] [address] [place], [place], [address] LDHon 02-23-2024 LDH 176 U/L Normal 87-241 [facility] Comment on above: Order Comment: 1 Performed By: #### L 504.2610 #### [facility] [address] [place], [place], [address] AFP, Tumor Markeron 02-15-19 AFP TUMOR CARL 56.5 ng/mL High 0.0-5.7 [facility] Comment on above: Order Comment: 1 Result Comment: [facility] Electrochemiluminescence Immunoassay (ECLIA) Values obtained with different assay methods or kits cannot be used interchangeably. Results cannot be interpreted as absolute evidence of the presence or absence of malignant disease. This test is not interpretable in females. Performed at: [address] [id number] Repeat Chief: Reyes Khoury PhD, Phone: [phone] Performed By: #### L 504.2610 #### [facility] [address] [place], [place], [address] HCG BETA-SUBUNIT QUANT.on HCG B-SUBUNIT < 1 Normal 0-3 [facility] Comment on above: Result Comment: [employer] ECLIA methodology Performed at: [address] [id number] Repeat Chief: Reyes Khoury PhD, Phone: [phone] Performed By: #### L 3300.0700, L3100.5140 #### [facility] [address] [place], [address] LDHon 02-15-2024 LDH 161 U/L Normal 87-241 [facility] Comment on above: Order Comment: 1 Performed By: #### L 3300.0700, L3100.5140 #### [facility] [address] [place], [address] Oncology Visit Reporton Oncology Visit Report [facility] [address] [place] [address] OFFICE VISIT Date of Service: 02/15/24 1148 MR#: [id number] Acct: [id number] Name: RADHA CALDERON Rep #: [id number] : 1995 From: Jorge Corbin MD Age/Sex: 28/M Location: [facility] Status: Signed HPI Subjective Date of Service 02/15/24 Chief Complaint Testicular cancer History of Present Illness 28-year-old male who presented with a progressively enlarging right testicular mass over the course of 6 months. Testicular ultrasound confirmed a solid mass. Preoperative tumor markers alpha-fetoprotein and bHCG were elevated, LDH was normal (see lab section) January 13, 2024 right radical orchiectomy: Full pathology report is pending. [facility]Path IHC consistent with a malignant germ cell tumor composed of teratoma (60%), seminoma (20%), yolk sac tumor (15%) and embryonal carcinoma (5%), germ cell neoplasia in situ was present, no d efinite lymphovascular invasion identified and margins were negative. January 19, 2024 CT chest abdomen and pelvis: IMPRESSION: No evidence of metastases within the chest, abdomen and pelvis. Postsurgical changes within the right inguinal region. [facility] Medical History Non-seminomatous testicular cancer Malignant neoplasm of unspecified descended testis Non-smoker Surgical History Hx of unilateral orchiectomy History of neck surgery ( 2000) Family History (Updated 01/26/24 @ 09:34 by Kennedi Hickman) Mother Cancer ovarian, dx in her early 40s. Social History (Updated 01/26/24 @ 09:34 by Kennedi Hickman) Smoking Status: Never smoker alcohol intake: never ROS ROS Narrative Feels well, CT January 26, 2024 Intake Vital Signs 01/26/24 09:36 02/15/24 11:49 02/15/24 11:55 Height 5 ft 8 in 5 ft 8 in 5 ft 8 in Weight: 98.43 kg 98.43 kg BMI 33.0 33.0 BP 125/77 H 122/75 H Blood Pressure Location Lt brachial Lt brachial Position Sitting Sitting Respiration 16 16 Pulse 65 72 Pulse Source Monitor Monitor Temp 98.2 F 97.5 F L Temperature Source Temporal Artery Temporal Artery Pulse Oximetry (%) 98 97 Oxygen Delivery Method room air room air Intake Is patient in pain?: No Allergies No Known Allergies Allergy (Verified 02/15/24 11:53) Medications ???Medication ???Instructions ???Recorded ???Confirmed ???Type fluticasone propionate 50 1 spray intranasal QDAY 02/15/24 02/15/24 History mcg/actuation nasal spray,suspension (Flonase Allergy Relief) loratadine 10 mg capsule (Allergy 10 mg PO QDAY 02/15/24 02/15/24 History Relief (loratadine)) Central Venous Access Central Venous Access: No Laboratory Results 02/15/24 02/09/24 02/02/24 11:15 09:39 13:45 Lactate Dehydrogenase 161 160 209 Tumor Marker AFP 128.0 H 259.0 H HCG Beta Subunit < 1 < 1 01/26/24 01/12/24 10:12 09:24 Lactate Dehydrogenase 151 191 Tumor Marker AFP 616.0 H 5309.0 H HCG Beta Subunit 1 182 H Exam Physical Exam Narrative ECOG 0 Const alert, oriented x3, no apparent distress and healthy appearing Coding Level of Care Code Off vis,est,level 3 Exam Problem Focused Diagnoses Non-seminomatous cancer of right testis C62.91 Laterality: right Assessment and Plan Assessment and Plan (1) Non-seminomatous testicular cancer: Status: Acute Qualifiers: Laterality: right Qualified Code(s): C62.91 - Malignant neoplasm of right testis, unspecified whether descended or undescended Medications: Discontinued cephalexin Discontinued Reason: Pt no longer taking 500 mg PO Q8H 15 caps 0RF Plan 28-year-old male with 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 Patient denied any use of marijuana in the past which can interfere with tumor marker measurements. His tumor marker is steadily declining. Plan: Unless otherwise needed updating from pending final pathology report and normalization of tumor marker, based on NCCN guidelines advise surveillance: 1. Continue with weekly tumor marker measurements until normalization. 2. Follow-up in 4 weeks. 3. Patient strictly advised not to use marijuana in any form, he reports he had never used. Impression and plan discussed with patient . Jorge Corbin MD Paper Cup Machine Operator, [facility] Divisions of Medical Oncology Hematology Department of Internal Medicine [place] [address] This note was generated using a voice recognition system software. Although it was reviewed by the author prior to finalization, it may still contain incorrect wo (more content not included)... Normal [facility] AFP, Tumor Markeron 02-09-19 25 AFP TUMOR CARL 128.0 ng/mL High 0.0-5.7 [facility] Comment on above: Order Comment: 1 Result Comment: [facility] Electrochemiluminescence Immunoassay (ECLIA) Values obtained with different assay methods or kits cannot be used interchangeably. Results cannot be interpreted as absolute evidence of the presence or absence of malignant disease. This test is not interpretable in females. Performed at: [facility] [address] [id number] Repeat Chief: Reyes Khoury PhD, Phone: [phone] Performed By: #### L 504.2610 #### [facility] [place], [address] HCG BETA-SUBUNIT QUANT.on HCG B-SUBUNIT < 1 Normal 0-3 [facility] Comment on above: Result Comment: [employer] ECLIA methodology Performed at: [address] [id number] Repeat Chief: Reyes Khoury PhD, Phone: [phone] Performed By: #### L 504.2610 #### [facility] [address], [place], [address] LDHon 02-09-2024 LDH 160 U/L Normal 87-241 [facility] Comment on above: Order Comment: 1 Performed By: #### L 504.2610 #### [facility] [address] [place], [place], [address] AFP, Tumor Markeron 02-04-20 AFP TUMOR CARL 259.0 ng/mL High 0.0-5.7 [facility] Comment on above: Order Comment: 1 Result Comment: [facility] Electrochemiluminescence Immunoassay (ECLIA) Values obtained with different assay methods or kits cannot be used interchangeably. Results cannot be interpreted as absolute evidence of the presence or absence of malignant disease. This test is not interpretable in females. Performed at: [facility] [address] [id number] Repeat Chief: Reyes Khoury PhD, Phone: [phone] Performed By: #### L 504.2610 #### [facility] [place], [address] HCG BETA-SUBUNIT QUANT.on HCG B-SUBUNIT < 1 Normal 0-3 [facility] Comment on above: Result Comment: [facility] [employer] ECLIA methodology Performed at: [facility] [address] [id number] Repeat Chief: Reyes Khoury PhD, Phone: [phone] Performed By: #### L 504.2610 #### [facility] [address] [place], [place], [address] LDHon 02-02-2024 LDH 209 U/L Normal 87-241 [facility] Comment on above: Order Comment: 1 Result Comment: Slig ht Hemolysis, Result may be falsely increased. Performed By: #### L 504.2610 #### [facility] [address] [place], [address] CNOVon 01-31-2024 [facility] RADHA CALDER[facility] ([id number]) 1995 M Date Time Provider Department 01/31/24 10:15 AM BESS ROJAS [facility] During your visit today, we recorded the following information about you: Temperature Pulse Respiration Blood pressure 97.4 degrees 86/minute 16/minute 120/72 Weight 100.2 kg Bess Rojas, [employer].IMPORT EXPORT MANAGER 01/31/2024 9:29 AM Signed Subjective The history is provided by the patient. No training and development professional was used. [facility] aRdha Calderon is a 28 year old male who presents today for CC of left ear pain. Has had pressure for about a month. He denies any fever chills or body aches. He has not used any treatment or medications. BP 120/72 Pulse 86 Temp 36.3 ?C (97.4 ?F) Resp 16 Wt 100.2 kg (220 lb 14.4 oz) SpO2 97% Social History Tobacco Use Smoking status: Never Passive exposure: Yes Smokeless tobacco: Never Tobacco comments: Dad smokes outside Substance Use Topics Alcohol use: No Drug use: No PAST MEDICAL HISTORY Diagnosis Date PMH - PAST MEDICAL HISTORY OF 4 days old exchange transfusion PM - PAST MEDICAL HISTORY OF 12-14-2010 normal color vision I have confirmed and edited as necessary, the [facility] Review of Systems Constitutional: Negative for chills and fever. HENT: Positive for ear pain. Negative for congestion, sinus pain and sore throat. Respiratory: Negative for cough, sputum production, shortness of breath and wheezing. Cardiovascular: Negative for chest pain. Musculoskeletal: Negative for myalgias. Neurological: Negative for headaches. Objective Physical Exam Vitals and nursing note reviewed. Constitutional: Appearance: He is not toxic-appearing. HENT: Head: Normocephalic and atraumatic. Right Ear: Ear canal and external ear normal. No middle ear effusion. Tympanic membrane is not bulging. Left Ear: Ear canal and external ear normal. A middle ear effusion is present. Tympanic membrane is erythematous and bulging. Nose: No mucosal edema, congestion or rhinorrhea. Right Sinus: No maxillary sinus tenderness or frontal sinus tenderness. Left Sinus: No maxillary sinus tenderness or frontal sinus tenderness. Mouth/Throat: Pharynx: Uvula midline. No oropharyngeal exudate or posterior oropharyngeal erythema. Tonsils: No tonsillar abscesses. Cardiovascular: Rate and Rhythm: Normal rate and regular rhythm. Heart sounds: Normal heart sounds. Pulmonary: Effort: Pulmonary effort is normal. Breath sounds: Normal breath sounds. No decreased breath sounds, wheezing, rhonchi or rales. Lymphadenopathy: Head: Right side of head: No submental, submandibular, tonsillar or preauricular adenopathy. Left side of head: No submental, submandibular, tonsillar or preauricular adenopathy. Cervical: No cervical adenopathy. Right cervical: No superficial cervical adenopathy. Left cervical: No superficial cervical adenopathy. Neurological: Mental Status: He is alert. ASSESSMENT/PLAN: 1. Non-recurrent acute serous otitis media of left ear - ICD9: 381.01, ICD10: H65.02 - Will begin treatment with Amoxicillin for 7 days - Supportive care with plenty of fluids, rest, and analgesia prn. - Follow up in one week if symptoms persist or worsen. - zyrtec, flonase - follow up with ENT prn Diagnosis and treatment plan were discussed and questions were answered to the patient's satisfaction. Pt acknowledged understanding of concepts and follow up plan. Specific signs and symptoms that would indicate the need for higher level of care were discussed in detail warranting prompt ER evaluation. Bess Rojas APRN.IMPORT EXPORT MANAGER Allergies As of Date: 01/31/2024 (No Known Allergies) Date Reviewed: 01/31/2024 Reviewed by: Yessenia Li MA - Fully Assessed Reason for Visit: Ear Problem [38] Cmt: left x 1 month Primary Visit Diagnosis:Non-recurrent acute serous otitis media of left ear [H65.02] Order(s):amoxicillin (AMOXIL) 875 mg tabletTake 1 tablet by mouth two times a day for 7 days.Disp: 14 tabletRfl: 0 Prescriptions as of 01/31/2024 - amoxicillin (AMOXIL) 875 mg tablet Take 1 tablet by mouth two times a day for 7 days. - fluticasone (FLONASE) 50 mcg/actuation nasal spray Use 2 Sprays in each nostril once daily. Rinse mouth after use. Problem List As Of Date 01/31/2024 Noted Resolved Depression [F32.A] 11/08/2011 Prescriptions ordered this encounter Disp Refills Start End AMOXICILLIN 875 MG TABLET 14 t* 0 01/31/2024 02/07/2024 Route: ORAL Sig: Take 1 tablet by mouth two times a day for 7 days. Encounter Status:Closed by BESS ROJAS on 01/31/24 Normal [facility] AFP, Tumor Markeron 01-27-20 AFP TUMOR CARL 616.0 ng/mL High 0.0-5.7 [facility] Comment on above: Order Comment: N Result Comment: [facility] Electrochemiluminescence Immunoassay (ECLIA) Values obtained with different assay methods or kits cannot be used interchangeably. Results cannot be interpreted as absolute evidence of the presence or absence of malignant disease. This test is not interpretable in females. Performed at: [address] [id number] Repeat Chief: Reyes Khoury PhD, Phone: [phone] Performed By: #### L 3300.0700, L3100.5140 #### [facility] [address] [place], [address] HCG BETA-SUBUNIT QUANT.on HCG B-SUBUNIT 1 mIU/mL Normal 0-3 [facility] Comment on above: Result Comment: [employer] ECLIA methodology Performed at: [address] [id number] Repeat Chief: Reyes Khoury PhD, Phone: [phone] Performed By: #### L 3300.0700, L3100.5140 #### [facility] [address] [place], [place], [id number] LDHon 01-26-2024 LDH 151 U/L Normal 87-241 [facility] Comment on above: Order Comment: 1 Performed By: #### L 3300.0700, L3100.5140 #### [facility] [address] [place], [address] Oncology Visit Reporton 01-07 Oncology Visit Report [facility] [address] [place] [address] OFFICE VISIT Date of Service: 01/26/24928 MR#: [id number] Acct: [id number] Name: RADHA CALDERON Rep #: [id number] : 1995 From: Jorge Corbin MD Age/Sex: 28/M Location: [facility] Status: Signed HPI Subjective Date of Service 01/26/24 Chief Complaint Testicular cancer History of Present Illness 28-year-old male who presented with a progressively enlarging right testicular mass over the course of 6 months. Testicular ultrasound confirmed a solid mass. Preoperative tumor markers alpha-fetoprotein and bHCG were elevated, LDH was normal (see lab section) January 13, 2024 right radical orchiectomy: Full pathology report is pending. [facility] IHC consistent with a malignant germ cell tumor composed of teratoma (60%), seminoma (20%), yolk sac tumor (15%) and embryonal carcinoma (5%), germ cell neoplasia in situ was present, no d efinite lymphovascular invasion identified and margins were negative. January 19, 2024 CT chest abdomen and pelvis: IMPRESSION: No evidence of metastases within the chest, abdomen and pelvis. Postsurgical changes within the right inguinal region. PFSH Medical History Non-seminomatous testicular cancer Malignant neoplasm of unspecified descended testis Non-smoker Surgical History Hx of unilateral orchiectomy History of neck surgery ( 2000) Family History (Updated 01/26/24 @ 09:34 by Kennedi Hickman) Mother Cancer ovarian, dx in her early 40s. Social History (Updated 01/26/24 @ 09:34 by Kennedi Hickman) Smoking Status: Never smoker alcohol intake: never ROS Constitutional Constitutional: Reports systems reviewed and no addt'l complaints, except as documented; Denies fatigue, fever(s) or weight loss Eyes Eyes: Reports systems reviewed and no addt'l complaints, except as documented ENT HEENT: Reports systems reviewed and no addt'l complaints, except as documented Cardiovascular Cardiovascular: Reports systems reviewed and no addt'l complaints, except as documented; Denies chest pain or edema Respiratory/Chest Respiratory/Chest: Reports systems reviewed and no addt'l complaints, except as documented; Denies cough or dyspnea Gastrointestinal Gastrointestinal: Reports systems reviewed and no addt'l complaints, except as documented and other Details: Had diarrhea while on antibiotics. ; Denies change in bowel habits Genitourinary Genitourinary: Reports systems reviewed and no addt'l complaints, except as documented and other Details: Right inguinal swelling and discomfort postop Musculoskeletal Musculoskeletal: Reports systems reviewed and no addt'l complaints, except as documented; Denies back pain Integumentary Integumentary: Reports systems reviewed and no addt'l complaints, except as documented; Denies new lesions Neurologic Neurologic: Reports systems reviewed and no addt'l complaints, except as documented; Denies focal weakness or paresthesias Psychiatric Psychiatric: Reports systems reviewed and no addt'l complaints, except as documented Endocrine Endocrinology: Reports systems reviewed and no addt'l complaints, except as documented Hematologic/Lymphatic Hematologic/Lymphatic: Reports systems reviewed and no addt'l complaints, except as documented Allergic/Immunologic Allergic/Immunologic: Reports systems reviewed and no addt'l complaints, except as documented Intake Vital Signs 01/13/24 14:36 01/26/24 09:30 01/26/24 09:36 Height 5 ft 8 in 5 ft 8 in 5 ft 8 in Weight: 98.43 kg BMI 33.0 BP 125/77 H Blood Pressure Location Lt brachial Position Sitting Respiration 16 Pulse 65 Pulse Source Monitor Temp 98.2 F Temperature Source Temporal Artery Pulse Oximetry (%) 98 Oxygen Delivery Method room air Intake Is patient in pain?: Yes (testicle pain ) Allergies No Known Allergies Allergy (Verified 01/26/24 09:32) Have you fallen in the past year?: No Central Venous Access Central Venous Access: No Laboratory Results 01/12/24 09:24 Lactate Dehydrogenase 191 Tumor Marker AFP 5309.0 H HCG Beta Subunit 182 H Exam Physical Exam Narrative ECOG 0 Const alert, oriented x3 and no apparent distress General Appearance: cooperative and comfortable HEENT normocephalic Face and Sinus: normal facial exam Mouth: oral and palatal mucosa normal Eyes General Eye: normal appearance of both eyes Neck no lymphadenopathy and no JVD Resp clear to auscultation bilaterally Cardio regular rate and regular rhythm no scrotal swelling and no hernias present Narrative: Right inguinal area soft tissue swelling but no masses, surgical wound healing well Back/Spine no thoracic nor lum (more content not included)... Normal [facility] CT Chest, Abd, Pel w/Contras ton 01-19-2024 CT Chest, Abd, Pel w/Contrast [facility] Imaging Services [address] [place] [address] CT Chest, Abd, Pel w/Contrast MR#: [id number] Acct: [id number] Name: RADHA CALDERON Rep #: [id number] : 1995 M 28 From: Jemima Ross MD PCP: Care Physician,No Primary Status: REG CLI Study: CT Chest, Abd, Pel w/Contrast Date of Exam: Exam# [id number] Ordering Dr: Helen Bailey [id number] STUDY: CT CHEST, ABDOMEN T PELVIS WITH CONTRAST REASON FOR EXAM: Male, 28 years old. MALIGNANT NEOPLASM OF TESTIS RADIATION DOSAGE (If Supplied By Facility): CTDIvol = ( 14.85 ) mGy, DLP = ( 1634.46 ) mGycm TECHNIQUE: Transaxial imaging was performed following intravenous administration of IV 100mL Isovue-300. Multiplanar coronal and sagittal images were reformatted. The protocol utilizes one or more of the following dose reduction techniques: automated exposure control, adjustment of mA and/or kV according to patient size,and/or use of iterative reconstruction technique. COMPARISON: No relevant prior comparison study available FINDINGS: CHEST The lungs are normal. There is no demonstrated pleural abnormality. Normal heart and pericardium. There are no coronary artery calcifications. Normal mediastinum. Normal hilar regions. Normal unenhanced pulmonary arteries. Normal aorta arch and descending thoracic aorta. Normal osseous structures. ABDOMEN Normal liver. Normal gallbladder and extrahepatic biliary system. Normal spleen. Normal pancreas. Normal bilateral adrenal glands. Normal right kidney. Normal left kidney. Normal visualized stomach. Normal small intestine. Normal colon. There is non-visualization of the appendix. Normal abdominal aorta. Normal inferior vena cava. Normal retroperitoneum. Normal abdominal wall. Normal osseous structures. PELVIS Normal urinary bladder. There is no pelvic fluid. There is no pelvic lymphadenopathy or mass lesion. Normal visualized pelvic arteries. There is mild stranding within the right inguinal region associated with few subcutaneous foci of air consistent with recent surgical intervention. Normal osseous structures. CT/CT Chest, Abd, Pel w/Contrast IMPRESSION: No evidence of metastases within the chest, abdomen and pelvis. Postsurgical changes within the right inguinal region. Electronically Signed: Jemima Ross MD at 12:45 EST , CC: Helen Bailey; No Primary Care Physician Massage Operator: Signed Normal [facility] AFP, Tumor Markeron 01-13-20 AFP TUMOR CARL 5309.0 ng/mL High 0.0-5.7 [facility] Comment on above: Order Comment: NN Result Comment: Resu lts confirmed on dilution. [employer] Electrochemiluminescence Immunoassay (ECLIA) Values obtained with different assay methods or kits cannot be used interchangeably. Results cannot be interpreted as absolute evidence of the presence or absence of malignant disease. This test is not interpretable in females. Performed at: - [facility] [id number] Repeat Chief: Reyes Khoury PhD, Phone: [phone] Performed By: #### L 5457.5513, P0186.5831 #### [facility] [address] [facility] [place], [place], [address] Discharge Instructionon Discharge Instruction [facility] Medical Records Department [address] [place] [address] Instructions for Home/Discharge Instructions 01/13/24 1522 MR#: [id number] Acct: [id number] Name: RADHA CALDERON Rep #: [id number] : 1995 28 From: Maico Membreno MD PCP: Care Physician,No Primary Status:REG SDC Discharge Instructions Diet Discharge Diet: No restrictions, Light diet - advance as tolerated and Soft diet DC O2, CPAP, BIPAP needs Additional Home O2 Discharge instructions: No Dressing / Incision Discharge Activity: May Not Drive (if having pain.) and May Shower Return to work on:: 02/10/24 May shower in (days): 1 Dressing / Incision Call your doctor if your incision/area has: Increased Pain/ Swelling, Increased Redness, Foul Smelling Discharge and Swelling at the incision site Call your doctor if you observe: Fever of 101 or Higher and Uncontrolled pain Suture Line Care: Avoid Pulling/Pushing and Avoid Pinching/Bending Follow Up Care Please Follow Up With: Maico Membreno MD When: 7 days for a check up Test Results: Test results from this visit will be discussed in further detail at your follow-up appointment, if applicable. Discharge Plan Admission Primary Reason for Your Visit: Radical Right orchiectomy Attending Provider: Maico Membreno Primary Care Provider: Care Physician,No Primary Instructions Patient Instructions: Radical Orchiectomy Print Language: Malay Discharge Orders/Prescriptions Prescriptions: New cephalexin 500 mg capsule 500 mg PO Q8H Qty: 15 0RF oxycodone 5 mg tablet 5 mg PO Q6H PRN (Reason: pain) 3 Days Qty: 14 0RF docusate sodium [Colace] 100 mg capsule 100 mg PO BID Qty: 20 0RF Referrals / Follow Up: Maico Membreno MD [Med Staff - Active Staff] - Care Physician,No Primary [Primary Care Provider] - Disposition Disposition (needs filled in before D/C Order can be placed): Home, Self Care 01/13/24 1524 Maico Membreno MD CC: No Primary Care Physician Signed Normal [facility] HCG BETA-SUBUNIT QUANT.on HCG B-SUBUNIT 182 mIU/mL High 0-3 [facility] Comment on above: Result Comment: Mario NOLAND methodology Performed at: - [facility] [id number] Repeat Chief: Reyes Khoury PhD, Phone: [phone] Performed By: #### L 8674.1995, V1290.5142 #### [facility] [address] [place], [address] MR/POSTOP.ANEon 01-13-2024 MR/POSTOP.ANE [facility] Medical Records Department [address] [place] [address] Anesthesia Postop Eval I 01/13/24 1629 MR#: [id number] Acct: [id number] Name: RADHA CALDERON Rep #: [id number] : 1995 28 From: Jean Kwon PCP: Care Physician,No Primary Status:[facility] Y Race: C Location: [place] [address] Anesthesia: Postop Eval I Current Vital Signs Temperature: 98.8 F Pulse Rate: 74 Blood Pressure: 90/49 Respiratory Rate: 13 Pulse Ox: 94 Oxygen Delivery Method: Room Air (with 100mm OA) Assessment Airway patent: Yes Spontaneous unlabored respirations: Yes Mental status: Asleep nausea: No Vomiting: No Anesthesia Complication: No Fluid Hydration Crystalloid volume administer (ml): 900 Total IV fluid infused: 900 Progress Note Anesthesia document: Postop Eval 1 completed: Yes 01/13/24 1630 Date Jean Farrellignjuan Signature: Date CC: Signed Normal [facility] MR/[id number] 01-13-2024 MR/POSTOPAN2 [facility] Medical Records Department [address] [place] [address] Anesthesia Postop Eval II 01/13/24 1759 MR#: [id number] Acct: [id number] Name: RADHA CALDERON JOLLY Rep #: [id number] : 1995 28 From: Dejan Alonso MD PCP: Care Physician,No Primary Status:REG SDC Y Race: C Location: [place] [address]- Anesthesia Postop Eval I Sum Postop Eval Completion status Anesthesia document: Postop Eval 1 completed: Yes Anesthesia Postop Eval I Summary Anesthesia Postop Eval I Summary: Anesthesia Postop Eval I: Assessment Summary Airway patent Yes 01/13/24 16:30 [email or web address] Spontaneous unlabored Yes 01/13/24 16:30 [email or web address] respirations Mental status Asleep 01/13/24 16:30 [email or web address] nausea No 01/13/24 16:30 [email or web address] Vomiting No 01/13/24 16:30 [email or web address] Anesthesia Postop Eval I: Fluid Summary Crystalloid volume administer 900 01/13/24 16:30 [email or web address] (ml) Colloids volume administered ( ml) Blood Product volume administered (ml) Total IV fluid infused 900 01/13/24 16:30 [email or web address] Anesthesia Postop Eval I: Summary Notes Anesthesia Complication No 01/13/24 16:30 [email or web address] Anesthesia Complication Comment: Post-operative progress note Anesthesia: Postop Eval II Evaluation Mental status: Awake Pain Level: 0 nausea: No Vomiting: No 01/13/24 1759 Date Dejan Alonso MD Cosigner Signature: Date CC: Signed Normal [facility] Operative Reporton 4 Operative Report [facility] Medical Records Department [address] [place] [address] Operative Report 01/13/24 1610 MR#: [id number] Acct: [id number] Name: RADHA CALDERON Rep #: [id number] : 1995 28 From: Maico Membreno MD PCP: Care Physician,No Primary Status:[facility] Location: [place] [address] Operative Report (Standard) Operative Information Date of Procedure: 01/13/24 Pre-Operative Diagnosis: Right large testicle mass Post-Operative Diagnosis: The same Surgery/Procedure Performed: Right radical orchiectomy pipelines supervisor: No Type of Anesthesia: General RN Documented Start/Stop Times: Operation Date: 01/13/24 16:35 Case Time Into Pre-Op 01/13/24 14:30 Out of Pre-Op 01/13/24 15:17 Anesthesia Start 01/13/24 15:20 Into Room 01/13/24 15:20 Procedure Start 01/13/24 15:35 Procedure End 01/13/24 16:09 Procedure Start Time: 15:35 Procedure Stop Time: 16:10 Select all DRAINS/GRAFTS/IMPLANTS that apply: None Estimated Blood Loss: 5 cc Specimen collected: Yes Description of specimen(s) removed: Right testicle mass Description of surgery: 28-year-old male presented the office with the testicle lump on examination the large mass by ultrasound also to confirm the large mass in the right testicle, exam of the left testicle is normal and ultrasound left testicle is normal, he had preoperative serum tumor markers drawn, AFP, hCG and beta hCG, LDH. 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 Patient was taken back to the operating room after smooth induction of anesthesia he was placed supine on the table, the right inguinal area and groin and scrotum was shaved prepped and draped in usual sterile fashion made a incision in the right groin dissected to the skin dissected through Chris's fascia using electrocautery to get to under under Chris's fascia and then opened up the inguinal canal identified the inguinal cord and testicle cord going to the right testicle I then freed this up and then was able to deliver the testicle from the scrotum into the inguinal incision and then a high ligation of the performed prior to mobilizing the testicle. I then placed 2 clamps on the spermatic cord transected the cord then suture-ligated the cord with 0 chromic stitch and then freehand tied the cord with 0 silk stitches. Then copiously irrigated the incision use electrocautery to obtain hemostasis there was no sign of bleeding irrigated incision again and then I closed the fascia over the inguinal canal and then closed the Chris's fascia over the top of this and then closed the skin with a running 4-0 Monocryl stitch Steri-Strips were placed dressing was placed fluffs and scrotal support was placed patient anesthetic was reversed taken back to PACU in good condition he will follow-up in the office in about 1 week for follow-up and a postop check and we will plan for referral to medical oncology. Surgical Findings: Large mass in the right testicle removed Complications Complications: No Admit VTE Documentation VTE Present on Admission: No VTE Mechan Device Prophylaxis: SCD's VTE Pharm Prophylaxis ordered?: No 01/13/24 1613 Cosigner Signature (if applicable): CC: Dr. Maico Membreno MD; No Primary Care Physician Signed Normal [facility] Surgery Specimen Level VIon 01-13-2024 Surgery Specimen Level Patient Age/Sex Location Account Attending Physician RADHA CALDERON 28/[place] [facility] [id number]. Maico Membreno MD Specimen: [id number] Received: 01/16/24 Status: [place] English Num: [id number] Spec Type: TESTICLE Subm Dr: Dr. 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 No definite lymphovascular invasion identified. Margin negative for tumor. See cancer summary in the comment section. 01/26/2024 COMMENT TESTIS - RADICAL ORCHIECTOMY CANCER SUMMARY: Specimen type - radical orchiectomy Specimen laterality - Right Tumor focality - Unifocal Tumor Size - 8.0 x 5.0 x 4.5c Histologic type - Malignant germ cell tumor: Teratoma - 60%, Seminoma - 20%, Yolk sac tumor - 15%, Embryonal carcinoma - 5% Tumor extension - Tumor limited to testis Margins: Spermatic cord margin - Uninvolved by tumor Other margins - Uninvolved by tumor Lymphovascular invasion - Not identified Regional lymph nodes: No known lymph nodes are submitted or found Distant metastasis - Not applicable Pre-orchiectomy serum tumor markers: Alpha-feto protein evaluation: 5309 ng/ml, N- 0.0-5.7) Beta subunit of human chronic gonadotropin elevation: 182 mIU/ml (N - 0.3) LDH: 191 U/L (N -87-241) Post orchiectomy seum tumor markers: not available Serum tumor markers: LDH - normal limit. HCG - S1 (<5000 units) AFP elevation - S2 (5309 ng/ml) Patient Age/Sex Location Account Attending Physician RADHA CALDERON 28/[place] [facility] [id number]. Maico Membreno MD Additional pathologic findings - Germ cell neoplasia in situ. - Extensive tumor necrosis. PATHOLOGIC STAGE: pT1b pNx pMx The above summary is in compliance with [employer] (CAP) Cancer Protocols Checklist and [place] Joint Committee on Cancer (AJCC), Staging Manual, 8th Ed. Case has been reviewed in consultation with Dr. Pena who concurs with the above diagnosis. IDC:AM MICROSCOPIC DESCRIPTION Slides are reviewed. GROSS DESCRIPTION Received in fixative is one container labeled with the patient's name and designated Right testicular mass. The specimen consists of a testis with detached spermatic cord and vascular tissue. The testis measures 8.0 x 5.5 x 5.3cm and weighs 64 gm. The distal spermatic cord along with fibrovascular tissue measures 5.0cm in length and 1.5cm in diameter. The external surface is smooth and glistening and is inked. Sections of testis reveal pink-white mass with extensive necrosis that involves approximately 95% of the testis. The mass measures 8.0 x 5.0 x 4.5cm. No extension beyond the tunica vaginalis is identified. [employer] sections are submitted in ten cassettes as follows: 1- spermatic cord and soft tissue with margin of resection, 2-10- tumor. NOTE: Sections are submitted after additional fixation. AM. 01/17/2024 Additional sections area submitted as follows: 11 - more section spermatic cord, 12 to 14 - additional sections of tumor. AM. 01/19/2024 TC:0 CPT:86910 Patient Age/Sex Location Account Attending Physician RADHA CALDERON 28/M [facility] [id number] Dr. Maico Membreno MD Signed (signature on file) Dr. Tod Villatoro MD 01/26/24 1033 Normal [facility] Comment on above: Performed By: #### L 504.2610 #### [facility] [address] [place], [address] Basic Metabolic Profile (BMP )on 01-12-2024 BUN/CRE 18.7 RATIO Normal 10-20 [facility] Comment on above: Order Comment: N 1 Performed By: #### L 500.2500, L100.0500, L3100.5140, L504.2610, L3300.0700 #### [facility] [address] [place], [address] CA,Total 9.4 mg/dL Normal 8.5-10.1 [facility] Comment on above: Order Comment: N 1 Performed By: #### L 500.2500, L100.0500, L3100.5140, L504.2610, L3300.0700 #### [facility] [address] [place], [address] Chloride [Moles/Vol] 106 mmol/L Normal 98-107 [facility] Comment on above: Order Comment: N 1 Performed By: #### L 500.2500, L100.0500, L3100.5140, L504.2610, L3300.0700 #### [facility] [address] [place], [address] CO2 [Moles/Vol] 27.0 mmol/L Normal 21.0-32.0 [facility] Comment on above: Order Comment: N 1 Performed By: #### L 500.2500, L100.0500, L3100.5140, L504.2610, L3300.0700 #### [facility] [address] [place], [address] Creatinine [Mass/Vol] 0.91 mg/dL Normal 0.70-1.30 [facility] Comment on above: Order Comment: N 1 Result Comment: The validity of the calculated GFR GFRAA in patients over 70 years has not been determined. Clinical correlation is essential. Performed By: #### L 500.2500, L100.0500, L3100.5140, L504.2610, L3300.0700 #### [facility] [address] [place], [address] EST GFR - AA 127 mL/min Normal >60 [facility] Comment on above: Order Comment: N 1 Result Comment: Afri can British GFR Calc Performed By: #### L 500.2500, L100.0500, L3100.5140, L504.2610, L3300.0700 #### [facility] [address] [place], [address] GAP 6 Normal 5-15 [facility] Comment on above: Order Comment: N 1 Performed By: #### L 500.2500, L100.0500, L3100.5140, L504.2610, L3300.0700 #### [facility] [address] [place], [address] GFR/1.73 sq M.predicted among non-blacks MDRD (S/P/Bld) [Vol rate/Area] 105 mL/min/{1.73_m2} Normal >60 [facility] Comment on above: Order Comment: N 1 Result Comment: Non- GFR Calc Performed By: #### L 500.2500, L100.0500, L3100.5140, L504.2610, L3300.0700 #### [facility] [address] [place], [address] Glucose [Mass/Vol] 99 mg/dL Normal 74-106 [facility] Comment on above: Order Comment: N 1 Performed By: #### L 500.2500, L100.0500, L3100.5140, L504.2610, L3300.0700 #### [facility] [address] [place], [address] Potassium [Moles/Vol] 4.1 mmol/L Normal 3.5-5.1 [facility] Comment on above: Order Comment: N 1 Performed By: #### L 500.2500, L100.0500, L3100.5140, L504.2610, L3300.0700 #### [facility] [address] [place], [address] Sodium [Moles/Vol] 139 mmol/L Normal 136-145 [facility] Comment on above: Order Comment: N 1 Performed By: #### L 500.2500, L100.0500, L3100.5140, L504.2610, L3300.0700 #### [facility] [address] [place], [address] Urea nitrogen [Mass/Vol] 17 mg/dL Normal 7-18 [facility] Comment on above: Order Comment: N 1 Performed By: #### L 500.2500, L100.0500, L3100.5140, L504.2610, L3300.0700 #### [facility] [address] [place], [address] CBC-Complete Blood Cnt No Di ffon 01-12-2024 Erythrocyte distribution width (RBC) [Ratio] 11.9 % Normal 11.6-14.6 [facility] Comment on above: Performed By: #### L 500.2500, L100.0500, L3100.5140, L504.2610, L3300.0700 #### [facility] [address] [place], [address] Hematocrit (Bld) [Volume fraction] 51.3 % Normal 40-54 [facility] Comment on above: Performed By: #### L 500.2500, L100.0500, L3100.5140, L504.2610, L3300.0700 #### [facility] [address] [place], [address] Hemoglobin (Bld) [Mass/Vol] 17.4 g/dL High 13.0-16.5 [facility] Comment on above: Performed By: #### L 500.2500, L100.0500, L3100.5140, L504.2610, L3300.0700 #### [facility] [address] [place], [address] MCH (RBC) [Entitic mass] 30.1 pg Normal 27.0-32.0 [facility] Comment on above: Performed By: #### L 500.2500, L100.0500, L3100.5140, L504.2610, L3300.0700 #### [facility] [address] [place], [address] MCHC (RBC) [Mass/Vol] 33.9 g/dL Normal 32-36 [facility] Comment on above: Performed By: #### L 500.2500, L100.0500, L3100.5140, L504.2610, L3300.0700 #### [facility] [address] [place], [address] MCV (RBC) [Entitic vol] 88.8 fL Normal 80-94 [facility] Comment on above: Performed By: #### L 500.2500, L100.0500, L3100.5140, L504.2610, L3300.0700 #### [facility] [address] [place], [address] Platelet mean volume (Bld) [Entitic vol] 9.3 fL Normal 6.2-12.0 [facility] Comment on above: Performed By: #### L 500.2500, L100.0500, L3100.5140, L504.2610, L3300.0700 #### [facility] [address] [place], [address] Platelets (Bld) [#/Vol] 348 10*3/uL Normal 150-450 [facility] Comment on above: Performed By: #### L 500.2500, L100.0500, L3100.5140, L504.2610, L3300.0700 #### [facility] [address] [place], [address] RBC (Bld) [#/Vol] 5.78 10*6/uL Normal 4.6-6.2 [facility] Comment on above: Performed By: #### L 500.2500, L100.0500, L3100.5140, L504.2610, L3300.0700 #### [facility] [address] [place], [address] RDW SD 38.2 fl Normal 35.1-43.9 [facility] Comment on above: Performed By: #### L 500.2500, L100.0500, L3100.5140, L504.2610, L3300.0700 #### [facility] [address] [place], [address] WBC (Bld) [#/Vol] 8.5 10*3/uL Normal 4.4-11.0 [facility] Comment on above: Performed By: #### L 500.2500, L100.0500, L3100.5140, L504.2610, L3300.0700 #### [facility] [address] [place], [address] LDHon 01-12-2024 LDH 191 U/L Normal 87-241 [facility] Comment on above: Order Comment: N 1 Performed By: #### L 500.2500, L100.0500, L3100.5140, L504.2610, L3300.0700 #### [facility] [place], [address] Vital Signs Date Time Vital Sign Value Performing Clinician Facility 07-11-2024 11:39-0400 Body height 172.72 cm No Primary Care Physician [facility] 07-11-2024 11:39-0400 Body mass index (BMI) [Ratio] 36.6 kg/m2 No Primary Care Physician [facility] 07-11-2024 11:39-0400 Body temperature 98.4 [degF] No Primary Care Physician [facility] 07-11-2024 11:39-0400 Body weight 109.31 kg No Primary Care Physician [facility] 07-11-2024 11:39-0400 Diastolic blood pressure 76 mm[Hg] No Primary Care Physician [facility] 07-11-2024 11:39-0400 Heart rate 74 /min No Primary Care Physician [facility] 07-11-2024 11:39-0400 Respiratory rate 18 /min No Primary Care Physician [facility] 07-11-2024 11:39-0400 SaO2% (BldA) [Mass fraction] 96 % No Primary Care Physician [facility] 07-11-2024 11:39-0400 Systolic blood pressure 121 mm[Hg] No Primary Care Physician [facility] 04-19-2024 13:21-0400 Body height 172.72 cm No Primary Care Physician [facility] 04-19-2024 13:21-0400 Body mass index (BMI) [Ratio] 34.4 kg/m2 No Primary Care Physician [facility] 04-19-2024 13:21-0400 Body temperature 98.6 [degF] No Primary Care Physician [facility] 04-19-2024 13:21-0400 Body weight 102.68 kg No Primary Care Physician [facility] 04-19-2024 13:21-0400 Diastolic blood pressure 76 mm[Hg] No Primary Care Physician [facility] 04-19-2024 13:21-0400 Heart rate 60 /min No Primary Care Physician [facility] 04-19-2024 13:21-0400 Respiratory rate 18 /min No Primary Care Physician [facility] 04-19-2024 13:21-0400 SaO2% (BldA) [Mass fraction] 98 % No Primary Care Physician [facility] 04-19-2024 13:21-0400 Systolic blood pressure 116 mm[Hg] No Primary Care Physician [facility] 03-14-2024 11:32-0500 Body mass index (BMI) [Ratio] 34 kg/m2 No Primary Care Physician [facility] 03-14-2024 11:32-0500 Body temperature 98.8 [degF] No Primary Care Physician [facility] 03-14-2024 11:32-0500 Body weight 101.6 kg No Primary Care Physician [facility] 03-14-2024 11:32-0500 Diastolic blood pressure 73 mm[Hg] No Primary Care Physician [facility] 03-14-2024 11:32-0500 Heart rate 66 /min No Primary Care Physician [facility] 03-14-2024 11:32-0500 Respiratory rate 16 /min No Primary Care Physician [facility] 03-14-2024 11:32-0500 SaO2% (BldA) [Mass fraction] 97 % No Primary Care Physician [facility] 03-14-2024 11:32-0500 Systolic blood pressure 125 mm[Hg] No Primary Care Physician [facility] 02-15-2024 11:55-0500 Body mass index (BMI) [Ratio] 33 kg/m2 No Primary Care Physician [facility] 02-15-2024 11:55-0500 Body temperature 97.5 [degF] No Primary Care Physician [facility] 02-15-2024 11:55-0500 Body weight 98.42 kg No Primary Care Physician [facility] 02-15-2024 11:55-0500 Diastolic blood pressure 75 mm[Hg] No Primary Care Physician [facility] 02-15-2024 11:55-0500 Heart rate 72 /min No Primary Care Physician [facility] 02-15-2024 11:55-0500 Respiratory rate 16 /min No Primary Care Physician [facility] 02-15-2024 11:55-0500 SaO2% (BldA) [Mass fraction] 97 % No Primary Care Physician [facility] 02-15-2024 11:55-0500 Systolic blood pressure 122 mm[Hg] No Primary Care Physician [facility] 01-31-2024 09:12-0500 Body temperature 97.39 [degF] Bess Crystal COMPENSATOR WORKER.IMPORT EXPORT MANAGER Work Phone: [facility] 01-31-2024 09:12-0500 Body weight 100.2 kg Bess Crystal COMPENSATOR WORKER.IMPORT EXPORT MANAGER Work Phone: [facility] 01-31-2024 09:12-0500 Diastolic blood pressure 72 mm[Hg] Bess Crystal COMPENSATOR WORKER.IMPORT EXPORT MANAGER Work Phone: [facility] 01-31-2024 09:12-0500 Heart rate 86 /min Bess Crystal COMPENSATOR WORKER.IMPORT EXPORT MANAGER Work Phone: [facility] 01-31-2024 09:12-0500 Respiratory rate 16 /min Bess Crystal COMPENSATOR WORKER.IMPORT EXPORT MANAGER Work Phone: [facility] 01-31-2024 09:12-0500 SaO2% (BldA) [Mass fraction] 97 % Bess Houstonk COMPENSATOR WORKER.IMPORT EXPORT MANAGER Work Phone: [facility] 01-31-2024 09:12-0500 Systolic blood pressure 120 mm[Hg] Bess Crystal COMPENSATOR WORKER.IMPORT EXPORT MANAGER Work Phone: [facility] 01-26-2024 09:36-0500 Body mass index (BMI) [Ratio] 33 kg/m2 No Primary Care Physician [facility] 01-26-2024 09:36-0500 Body temperature 98.2 [degF] No Primary Care Physician [facility] 01-26-2024 09:36-0500 Body weight 98.42 kg No Primary Care Physician [facility] 01-26-2024 09:36-0500 Diastolic blood pressure 77 mm[Hg] No Primary Care Physician [facility] 01-26-2024 09:36-0500 Heart rate 65 /min No Primary Care Physician [facility] 01-26-2024 09:36-0500 Respiratory rate 16 /min No Primary Care Physician [facility] 01-26-2024 09:36-0500 SaO2% (BldA) [Mass fraction] 98 % No Primary Care Physician [facility] 01-26-2024 09:36-0500 Systolic blood pressure 125 mm[Hg] No Primary Care Physician [facility] Encounters Encounter Date Encounter Type Care Provider Facility Start: 07-11-2024 End: 07-11-[address] Jorge Corbin MD -[facility] Work Phone: Start: 07-11-2024 End: 07-11-2024 ambulatory No Primary Care Physician Facility:[facility] Start: 07-04-2024 ambulatory Jorge Corbin Facili ty:[facility] Start: 07-04-[address] Lars Corbin MD -[facility] Start: 05-17-2024 End: 05-17-2024 ambulatory No Primary Care Physician [facility] Work Phone: Start: 05-17-2024 End: 05-17-[address] Jorge Corbin MD -[facility] Work Phone: Start: 05-17-2024 End: 05-17-2024 ambulatory No Primary Care Physician Facility:[facility] Start: 04-19-2024 End: 04-19-[address] Jorge Corbin MD -[facility] Work Phone: Start: 04-19-2024 End: 04-19-2024 ambulatory Jorge Corbin Facility:[facility] Start: 04-12-[address] Lars Corbin MD -[facility] Start: 03-14-2024 End: 03-14-[address] Jorge Corbin MD -[facility] Work Phone: Start: 03-14-2024 End: 03-14-2024 ambulatory No Primary Care Physician Facility:[facility] Start: 03-01-2024 End: 03-01-[address] Jorge Corbin MD -[facility] Work Phone: Start: 03-01-2024 End: 03-01-2024 ambulatory No Primary Care Physician Facility:[facility] Start: 02-15-2024 End: 02-15-[address] Jorge Corbin MD -[facility] Work Phone: Start: 02-15-2024 End: 02-15-2024 ambulatory No Primary Care Physician Facility:[facility] Start: 01-31-2024 End: 01-31-2024 Patient encounter procedure Bess Rojas IMPORT EXPORT MANAGER Work Phone: [facility] Comment on above: Non-recurrent acute serous otitis media of left ear (Primary Dx) Start: 01-31-2024 End: 01-31-2024 ambulatory Facility:[facility] Start: 01-26-2024 End: 01-26-[address] Jorge Corbin MD -[facility] Work Phone: Start: 01-26-2024 End: 01-26-2024 ambulatory No Primary Care Physician Facility:[facility] Start: 01-23-2024 ambulatory No Primary Car e Physician Facility:[facility] Start: 01-19-2024 End: 01-19-2024 ambulatory Helen Boxford Facility:[facility] Start: 01-13-2024 End: 01-13-2024 ambulatory Maico Membreno Facility:[facility] Start: 01-12-2024 End: 01-12-2024 ambulatory [facility] Facility:[facility] Procedures Date Procedure Procedure Detail Performing Clinician Start: 07-04-2024 Xdgdc-8-Qidjrsgvemq measurement No Prima ry Care Physician Comment on above: Seratis Electrochemiluminescen ce Immunoassay(ECLIA)Values obtained with different assay methods or kits cannotbe used interchangeably. Results cannot be interpreted asabsolute evidence of the presence or absence of malignantdisease.This test is not interpretable in females.Performed at: [facility] [id number] [place] [id number] Director: Reyes Khoury PhD, Phone: [phone] Start: 07-04-2024 Human chorionic gonadotropin measurement No Primary Care Physician Comment on above: [employer] ECLIA methodologyPerformed at: [facility] [address] [id number] Director: Reyes Khoury PhD, Phone: [phone] Start: 05-17-2024 Computed tomography of abdomen and pelvis with intravenous contrast No Primary Care Physician Start: 05-17-2024 X-ray of chest, PA and lateral views No Primary Care Physician Plan of Treatment Date Care Activity Detail Author Start: 10-09-2023 Covid-19 Vaccine ( season) Covid-19 Vaccine ( season) [facility] Start: 10-09-2023 Influenza vaccination Influenz a Vaccine (#1) [facility] Start: 03-01-2017 Urine microalbumin profile DTa P,Tdap,Td Vaccine (4 - Td or Tdap) [facility] Start: 10-23-2013 Anxiety Screening Anxiety Screening [facility] Start: 10-23-2013 Hepatitis C screening Hepatitis C Sc reening [facility] Start: 10-23-2013 HIV screening HIV Screening [facility] Sutgz-5-aiytuvmjbld. tumor marker [Units/volume] in Serum or Plasma [facility] Dbvxx-2-ihpxfeiassl. tumor marker [Units/volume] in Serum or Plasma [facility] CT Abdomen and Pelvi s W contrast IV [facility] Human chorionic gonadotropin measurement [facility] Human chorionic gonadotropin measurement [facility] Lactate dehydrogenas e measurement [facility] Lactate dehydrogenas e measurement [facility] XR Chest PA and Lateral [facility] Immunizations Immunization Date Immunization Notes Care Provider Sy guerra 01-07-2014 influenza, injectabl e, quadrivalent, preservative free Bess Rojas APRN.IMPORT EXPORT MANAGER Work Phone: [facility] 01-07-2014 influenza virus vaccine, unspecified formulation Bess Rojas APRN.IMPORT EXPORT MANAGER Work Phone: [facility] 12-30-2012 influenza virus vaccine, unspecified formulation Bess Rojas APRN.IMPORT EXPORT MANAGER Work Phone: [facility] 12-30-2012 Meningococcal, MCV4, unspecified conjugate formulation(groups A, C, Y and W-135) Bess Rojas APRN.IMPORT EXPORT MANAGER Work Phone: [facility] 10-27-2011 influenza virus vaccine, unspecified formulation Bess Rojas APRN.IMPORT EXPORT MANAGER Work Phone: [facility] 12-14-2010 influenza virus vaccine, unspecified formulation Bess Crystal COMPENSATOR WORKER.IMPORT EXPORT MANAGER Work Phone: [facility] 12-14-2010 varicella virus vaccine Franko a Crystal COMPENSATOR WORKER.IMPORT EXPORT MANAGER Work Phone: [facility] 11-13-2008 influenza virus vaccine, unspecified formulation Bess Crystal COMPENSATOR WORKER.IMPORT EXPORT MANAGER Work Phone: [facility] Work Phone: 03-01-2007 Meningococcal, MCV4, unspecified conjugate formulation(groups A, C, Y and W-135) Bess Crystal COMPENSATOR WORKER.IMPORT EXPORT MANAGER Work Phone: [facility] 03-01-2007 tetanus toxoid, redu elzbieta diphtheria toxoid, and acellular pertussis vaccine, adsorbed Bess Crystal COMPENSATOR WORKER.IMPORT EXPORT MANAGER Work Phone: [facility] 11-11-2000 diphtheria, tetanus toxoids and pertussis vaccine Bess Crystal COMPENSATOR WORKER.IMPORT EXPORT MANAGER Work Phone: [facility] 11-11-2000 haemophilus influenz ae type b vaccine, HbOC conjugate Bess Crystal COMPENSATOR WORKER.IMPORT EXPORT MANAGER Work Phone: [facility] 11-11-2000 measles, mumps and rubella virus vaccine Bess Crystal COMPENSATOR WORKER.IMPORT EXPORT MANAGER Work Phone: [facility] 11-11-2000 poliovirus vaccine, inactivated Bess Crystal COMPENSATOR WORKER.IMPORT EXPORT MANAGER Work Phone: [facility] 11-04-1999 varicella virus vaccine Franko a Crystal COMPENSATOR WORKER.IMPORT EXPORT MANAGER Work Phone: [facility] 01-14-1997 diphtheria, tetanus toxoids and pertussis vaccine Bess Crystal COMPENSATOR WORKER.IMPORT EXPORT MANAGER Work Phone: [facility] 10-26-1996 measles, mumps and rubella virus vaccine Bess Crystal COMPENSATOR WORKER.IMPORT EXPORT MANAGER Work Phone: [facility] 07-03-1996 DTP-Haemophilus influenzae type b conjugate vaccine Bess Crystal COMPENSATOR WORKER.IMPORT EXPORT MANAGER Work Phone: [facility] 05-03-1996 haemophilus influenz ae type b vaccine, HbOC conjugate Bess Crystal COMPENSATOR WORKER.IMPORT EXPORT MANAGER Work Phone: [facility] 05-03-1996 hepatitis B vaccine, pediatric or pediatric/adolescent dosage Bess Crystal COMPENSATOR WORKER.IMPORT EXPORT MANAGER Work Phone: [facility] 05-03-1996 poliovirus vaccine, inactivated Bess Crystal COMPENSATOR WORKER.IMPORT EXPORT MANAGER Work Phone: [facility] 02-24-1996 DTP-Haemophilus influenzae type b conjugate vaccine Bess Crystal COMPENSATOR WORKER.IMPORT EXPORT MANAGER Work Phone: [facility] 02-24-1996 haemophilus influenz ae type b vaccine, HbOC conjugate Bess Crystal COMPENSATOR WORKER.IMPORT EXPORT MANAGER Work Phone: [facility] 02-24-1996 poliovirus vaccine, inactivated Bess Crystal COMPENSATOR WORKER.IMPORT EXPORT MANAGER Work Phone: [facility] 1995 DTP-Haemophilus influenzae type b conjugate vaccine Bess Crystal COMPENSATOR WORKER.IMPORT EXPORT MANAGER Work Phone: [facility] 1995 haemophilus influenz ae type b vaccine, HbOC conjugate Bess Crystal COMPENSATOR WORKER.IMPORT EXPORT MANAGER Work Phone: [facility] 1995 hepatitis B vaccine, pediatric or pediatric/adolescent dosage Bess Crystal COMPENSATOR WORKER.IMPORT EXPORT MANAGER Work Phone: [facility] 1995 poliovirus vaccine, inactivated Bess Crystal COMPENSATOR WORKER.IMPORT EXPORT MANAGER Work Phone: [facility] 1995 hepatitis B vaccine, pediatric or pediatric/adolescent dosage Bess Crystal COMPENSATOR WORKER.IMPORT EXPORT MANAGER Work Phone: [facility] Payers Date Payer Category Payer Self-pay 2024 Unknown [id number] 2018 Unknown MMO MMO [employer] PPO [id number] 2018-Present [phone] [address] [place] [address] PPO [id number] 2018 Unknown [id number] Unknown [id number] Unknown [id number] Unknown [id number] Unknown [id number] Unknown [id number] Unknown [id number] Unknown [id number] Unknown [id number] Unknown [id number] Unknown [id number] Unknown [id number] Unknown [id number] Social History Date Type Detail Facility Start: 01-31-2024 End: 03-14-2024 Tobacco smoking status [facility] Never smoked tobacco [facility] History of tobacco use Passive smoker [facility] Start: 01-31-2024 Tobacco use and exposure Smokeless tobacco non-user [facility] Start: 01-31-2024 Alcoholic beverage intake Current non-drinker of alcohol (finding) [facility] Start: 01-31-2024 History of Social function [facility] Start: 01-31-2024 Tobacco use panel [facility] Start: 01-31-2024 Tobacco Comment Dad smokes outside C [facility] Start: 1995 Sex assigned at Not on file C [facility] Start: 05-23-2024 Sex Male (finding) [facility] Start: 1995 Sex Assigned At Male [facility] Clinical Notes 01-13-2024 to 07-11-2024 Note Date & Type Note Facility 07-11-2024 Progress note [facility] 05-17-2024 Radiology Diagnostic study note [facility] Imaging Services [address] [place] [address] Abdomen/Pelvis W IV Cont ONLY MR#: [id number] Acct: [id number] Name: RADHA CALDERON Rep #: [id number] 2 : 1995 M 28 From: Lucia Whitmore MD PCP: Care Physician,No Primary Status: REG CLI Study:Abdomen/Pelvis W IV Cont ONLY Date of E xam: 05/17/24 Exam# [id number] Ordering Dr: Jorge Corbin MD PROCEDURE: ABDOMEN/PELVIS W IV CONT ONLY 05/17/2024 REASON FOR EXAM: F/U TESTICULAR CANCER TECHNIQUE: Abdomen and pelvis CT with intravenous contrast. Coronal and Sagittal reconstruction series were provided. PATIENT PREPARATION: Per protocol ORAL CONTRAST TYPE: None. AMOUNT: mL CONTRAST: Omnipaque 350 VOLUME: 100 mL Not Provided Gauge IV One or more dose reduction techniques were used (e.g., Automated exposure control, adjustment of the mA and/or kV according to patient size, use of iterative reconstruction technique. COMPARISON: None FINDINGS: Lung bases: Unremarkable Liver: Homogeneous attenuation. No focal lesion. Gallbladder: No ductal dilation. No cholelithiasis or wall thickening. Spleen: Normal size. Pancreas: Normal size without evidence of mass surrounding inflammation or ductal dilation. Adrenals: Unremarkable. Kidneys: Normal renal sizes. No hydronephrosis. Bladder: Urinary bladder is unremarkable. Reproductive Organs: Status post right orchiectomy. Bowel: Stomach is unremarkable. No bowel dilation or wall thickening. Moderatecolonic stool. Appendix is not visualized. Appendix: The appendix is not identified. There is no inflammatory process identified in the right lower quadrant to suggest appendicitis. Lymph nodes: No suspicious lymph node enlargement. Vasculature: The abdominal aorta and IVC are normal. Peritoneum / Retroperitoneum: No ascites. No pneumoperitoneum. Bones: No suspicious osseous lesions. Soft tissue: Unremarkable CT/Abdomen/Pelvis W IV Cont ONLY IMPRESSION: No evidence of metastatic disease in the abdomen and pelvis. Reading Location: [facility] CC: Dr. Jorge Corbin MD; No Primary Care Physician ~ Massage Operator: Signed [facility] 05-17-2024 Radiology Diagnostic study note [facility] Imaging Services [address] [place] [address] Chest PA and Lateral MR#: [id number] Acct: [id number] Name: RADHA CALDERON Rep #: [id number] 2 : 1995 M 28 From: Chen Hoyos MD PCP: Care Physician,No Primary Status: REG CLI Study:Chest PA and Lateral Date of Exam: 05/17/24 Exam# [id number] Ordering Dr: Jorge Corbin MD EXAM: XR Chest, 2 Views CLINICAL INDICATION: F/U TESTICULAR CANCER TECHNIQUE: Frontal and lateral views of the chest. COMPARISON: No relevant prior studies available. FINDINGS: LUNGS AND PLEURAL SPACES: Unremarkable. No consolidation. No pneumothorax. HEART: Unremarkable. No cardiomegaly. MEDIASTINUM: Unremarkable. Normal mediastinal contour. BONES/JOINTS: Unremarkable. No acute fracture. RAD/Chest PA and Lateral IMPRESSION: No acute cardiopulmonary process. Reading Location: [facility] CC: Dr. 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 Author Type: Nurse Practitioner Type: Progress Notes Filed: 01/31/2024 09:29 Note Text: Subjective The history is provided by the patient. No training and development professional was used. [facility] Radha Calderon is a 28 year old male who presents today for CC of left ear pain. Has had pressure for about a month. He denies any fever chills or body aches. He has not used any treatment or medications. BP 120/72 Pulse 86 Temp 36.3 ?C (97.4 ?F) Resp 16 Wt 100.2 kg (220 lb 14.4 oz) SpO2 97% Social History Tobacco Use Smoking status: Never Passive exposure: Yes Smokeless tobacco: Never Tobacco comments: Dad smokes outside Substance Use Topics Alcohol use: No Drug use: No PAST MEDICAL HISTORY Diagnosis Date Depression PMH - PAST MEDICAL HISTORY OF 4 days old exchange transfusion PM - PAST MEDICAL HISTORY OF 12-14-2010 normal color vision I have confirmed and edited as necessary, the [facility] Review of Systems Constitutional: Negative for chills and fever. HENT: Positive for ear pain. Negative for congestion, sinus pain and sore throat. Respiratory: Negative for cough, sputum production, shortness of breath and wheezing. Cardiovascular: Negative for chest pain. Musculoskeletal: Negative for myalgias. Neurological: Negative for headaches. Objective Physical Exam Vitals and nursing note reviewed. Constitutional: Appearance: He is not toxic-appearing. HENT: Head: Normocephalic and atraumatic. Right Ear: Ear canal and external ear normal. No middle ear effusion. Tympanic membrane is not bulging. Left Ear: Ear canal and external ear normal. A middle ear effusion is present. Tympanic membrane is erythematous and bulging. Nose: No mucosal edema, congestion or rhinorrhea. Right Sinus: No maxillary sinus tenderness or frontal sinus tenderness. Left Sinus: No maxillary sinus tenderness or frontal sinus tenderness. Mouth/Throat: Pharynx: Uvula midline. No oropharyngeal exudate or posterior oropharyngeal erythema. Tonsils: No tonsillar abscesses. Cardiovascular: Rate and Rhythm: Normal rate and regular rhythm. Heart sounds: Normal heart sounds. Pulmonary: Effort: Pulmonary effort is normal. Breath sounds: Normal breath sounds. No decreased breath sounds, wheezing, rhonchi or rales. Lymphadenopathy: Head: Right side of head: No submental, submandibular, tonsillar or preauricular adenopathy. Left side of head: No submental, submandibular, tonsillar or preauricular adenopathy. Cervical: No cervical adenopathy. Right cervical: No superficial cervical adenopathy. Left cervical: No superficial cervical adenopathy. Neurological: Mental Status: He is alert. ASSESSMENT/PLAN: 1. Non-recurrent acute serous otitis media of left ear - ICD9: 381.01, ICD10: H65.02 - Will begin treatment with Amoxicillin for 7 days - Supportive care with plenty of fluids, rest, and analgesia prn. - Follow up in one week if symptoms persist or worsen. - zyrtec, flonase - follow up with ENT prn Diagnosis and treatment plan were discussed and questions were answered to the patient's satisfaction. Pt acknowledged understanding of concepts and follow up plan. Specific signs and symptoms that would indicate the need for higher level of care were discussed in detail warranting prompt ER evaluation. Bess Rojas APRN.[facility]12-24-2024 History of Present illness Narrative* Bess Rojas APRN.[facility] - 01/31/2024 9:17 AM EST Subjective The history is provided by the patient. No training and development professional was used. HPI Radha Calderon is a 28 year old male who presents today for CC of left ear pain. Has had pressure for about a month. He denies any fever chills or body aches. He has not used any treatment or medications. BP 120/72 Pulse 86 Temp 36.3 C (97.4 F) Resp 16 Wt 100.2 kg (220 lb 14.4 oz) SpO2 97% Social History Tobacco Use Smoking status: Never Passive exposure: Yes Smokeless tobacco: Never Tobacco comments: Dad smokes outside Substance Use Topics Alcohol use: No Drug use: No PAST MEDICAL HISTORY Diagnosis Date Depression PMH - PAST MEDICAL HISTORY OF 4 days old exchange transfusion PMH - PAST MEDICAL HISTORY OF 12-14-2010 normal color vision I have confirmed and edited as necessary, the [facility] Review of Systems Constitutional: Negative for chills and fever. HENT: Positive for ear pain. Negative for congestion, sinus pain and sore throat. Respiratory: Negative for cough, sputum production, shortness of breath and wheezing. Cardiovascular: Negative for chest pain. Musculoskeletal: Negative for myalgias. Neurological: Negative for headaches. Objective Physical Exam Vitals and nursing note reviewed. Constitutional: Appearance: He is not toxic-appearing. HENT: Head: Normocephalic and atraumatic. Right Ear: Ear canal and external ear normal. No middle ear effusion. Tympanic membrane is not bulging. Left Ear: Ear canal and external ear normal. A middle ear effusion is present. Tympanic membrane iserythematous and bulging. Nose: No mucosal edema, congestion or rhinorrhea. Right Sinus: No maxillary sinus tenderness or frontal sinus tenderness. Left Sinus: No maxillary sinus tenderness or frontal sinus tenderness. Mouth/Throat: Pharynx: Uvula midline. No oropharyngeal exudate or posterior oropharyngeal erythema. Tonsils: No tonsillar abscesses. Cardiovascular: Rate and Rhythm: Normal rate and regular rhythm. Heart sounds: Normal heart sounds. Pulmonary: Effort: Pulmonary effort is normal. Breath sounds: Normal breath sounds. No decreased breath sounds, wheezing, rhonchi or rales. Lymphadenopathy: Head: Right side of head: No submental, submandibular, tonsillar or preauricular adenopathy. Left side of head: No submental, submandibular, tonsillar or preauricular adenopathy. Cervical: No cervical adenopathy. Right cervical: No superficial cervical adenopathy. Left cervical: No superficial cervical adenopathy. Neurological: Mental Status: He is alert. ASSESSMENT/PLAN: 1. Non-recurrent acute serous otitis media of left ear - ICD9: 381.01, ICD10: H65.02 - Will begin treatment with Amoxicillin for 7 days - Supportive care with plenty of fluids, rest, and analgesia prn. - Follow up in one week if symptoms persist or worsen. - zyrtec, flonase - follow up with ENT prn Diagnosis and treatment plan were discussed and questions were answered to the patient's satisfaction. Pt acknowledged understanding of concepts and follow up plan. Specific signs and symptoms that would indicate the need for higher level of care were discussed indetail warranting prompt ER evaluation. 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 19, 2024 12:27pm [facility] Work Phone: [phone]) 662-219412-06-2024 [facility] Medical Records Department [address] [place] [address] History Physical Exam 01/13/24 1521 MR#: [id number] Acct: [id number] Name: RADHA CALDERON Rep #: [id number] : 1995 28 From: Maico Membreno MD PCP: Care Physician,No [place] [facility] [place] [address] HPI - General General Date of Service: 01/13/24 Chief Complaint: Right testicular mass HPI Narrative RADHA CALDERON, is a 28 M who presented to my office yesterday with a concern for a testicle lump on the right side ultrasound was done in the office that demonstrated solid mass in the right testicle, left testicle was completely normal. We had tumor markers done which came back abnormal. 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 PFSH Medical History Non-smoker Home Medications ???Medication ???Instructions ???Recorded ???Last Taken ???Type cephalexin 500 mg capsule 500 mg PO Q8H #15 caps 01/13/24 Unknown Rx docusate sodium 100 mg capsule 100 mg PO BID #20 caps 01/13/24 Unknown Rx (Colace) oxycodone 5 mg tablet 5 mg PO Q6H PRN pain 3 days #14 01/13/24 Unknown Rx tabs Allergy/AdvReac Type Severity Reaction Status Date / Time No Known Allergies Allergy Verified 01/12/24 11:35 Surgical History History of neck surgery ( 2000) Social History Smoking Status: Never smoker ROS Constitutional Constitutional: Denies chills, fever(s) or malaise Eyes Eyes: Denies blurry vision or change in vision ENT HEENT: Reports none Cardiovascular Cardiovascular: Denies chest pain or palpitations Respiratory/Chest Respiratory/Chest: Denies cough or shortness of breath with exertion Gastrointestinal Gastrointestinal: Denies abdominal pain, constipation or diarrhea Musculoskeletal Musculoskeletal: Denies back pain, joint stiffness or joint swelling Integumentary Integumentary: Denies dry skin, jaundice, lesions or rash Neurologic Neurologic: Denies confusion, syncope or weakness Psychiatric Psychiatric: Reports none; Denies anxiety or depression Endocrine Endocrinology: Denies excessive sweating, fatigue or flushing Hematologic/Lymphatic Hematologic/Lymphatic: Denies anemia, easy bleeding or easy bruising Vital Signs Vital Signs Vital Signs: 01/13/24 14:36 01/13/24 14:36 01/13/24 14:58 Temperature 99.0 F 99.0 F Temperature Source Temporal Pulse Rate 72 72 Respiratory Rate 18 18 Respiratory Pattern Normal Blood Pressure 135/86 H 135/86 H Blood Pressure Mean 102 Blood Pressure Source Monitor Blood Pressure Position Semi-Fowlers Blood Pressure Location Right Arm Pulse Ox 100 100 Oxygen Delivery Method Room Air Room Air Weight Weight: 98.6 kg Body Mass Index (BMI) 33.0 Physical Exam Narrative solid large mass in right testicle Const alert and oriented x3 General Appearance: cooperative HEENT normocephalic and head/scalp atraumatic Eyes PERRL and EOMs intact bilaterally Neck supple, no JVD and no carotid bruits Resp normal respiratory effort, normal air movement and clear to auscultation bilaterally Cardio regular rate and no murmurs GI normal to inspection, nondistended, normoactive bowel sounds and soft to palpation Extremity normal capillary refill General Extremity: no tenderness to palpation of joints or extremities; Negative for edema Skin no rashes or lesions noted and no wounds General Skin Exam: no breakdown Neuro CN's II-XII intact bilaterally Psych affect normal Appearance: appropriate Results Medical Records Data Attestation: I reviewed the patient's medical records Assessment Plan Assessment/Plan (1) Testicle lump: PLAN: Plan to proceed with right radical orchiectomy 01/13/24 1522 Cosigner Signature (if applicable): CC: Dr. Maico Membreno MD; No Primary Care Physician SignedWooKindred Hospital LimaEvaluation note* Diagnosis Non-recurrent acute serous otitis media of left ear- Primary documented in this encounter [facility] note Author Jorge Corbin [facility] Note Date/Time July 11, 2024 11:[address] [facility] [place] [address] OFFICE VISIT Date of Service: 07/11/24 1137 MR#: [id number] Acct: [id number] Name: RADHA CALDERON Rep #: [id number] : 1995 From: Jorge luong MD Age/Sex: 28/M Location[place] [facility] Status: Signed HPI Subjective Date of Service 07/11/24 Chief Complaint Testicular cancer follow-up History of Present Illness 28-year-old male who presented with a progressively enlarging right testicular mass over the course of 6 months. Testicular ultrasound confirmed a solid mass. Preoperative tumor markers alpha-fetoprotein and bHCG were elevated, LDH was normal (see lab section) January 13, 2024 right radical orchiectomy: Full pathology report is pending. GenPath IHC consistent with a malignant germ cell tumor composed of teratoma (60%), seminoma (20%), yolk sac tumor (15%) and embryonal carcinoma (5%), germ cell neoplasia in situ was present, no definite lymphovascular invasion identified and margins were negative. January 19, 2024 CT chest abdomen and pelvis: IMPRESSION: No evidence of metastases within the chest, abdomen and pelvis. Postsurgical changes within the right inguinal region. PFSH Medical History Non-seminomatous testicular cancer Malignant neoplasm of unspecified descended testis Non-smoker Surgical History Hx of unilateral orchiectomy History of neck surgery (~2000) Family History Mother Cancer ovarian, dx in her early 40s. Social History Smoking Status: Never smoker alcohol intake: never ROS Constitutional Constitutional: Reports systems reviewed and no addt'l complaints, except as documented; Denies fatigue, fever(s) or weight loss Eyes Eyes: Reports systems reviewed and no addt'l complaints, except as documented ENT HEENT: Reports systems reviewed and no addt'l complaints, except as documented Cardiovascular Cardiovascular: Reports systems reviewed and no addt'l complaints, except as documented; Denies chest pain or edema Respiratory/Chest Respiratory/Chest: Reports systems reviewed and no addt'l complaints, except as documented; Denies cough or dyspnea Gastrointestinal Gastrointestinal: Reports systems reviewed and no addt'l complaints, except as documented and other Details: Had diarrhea while on antibiotics. ; Denies change in bowel habits Genitourinary Genitourinary: Reports systems reviewed and no addt'l complaints, except as documented and other Details: Right inguinal swelling and discomfort postop Musculoskeletal Musculoskeletal: Reports systems reviewed and no addt'l complaints, except as documented; Denies back pain Integumentary Integumentary: Reports systems reviewed and no addt'l complaints, except as documented; Denies new lesions Neurologic Neurologic: Reports systems reviewed and no addt'l complaints, except as documented; Denies focal weakness or paresthesias Psychiatric Psychiatric: Reports systems reviewed and no addt'l complaints, except as documented Endocrine Endocrinology: Reports systems reviewed and no addt'l complaints, except as documented Hematologic/Lymphatic Hematologic/Lymphatic: Reports systems reviewed and no addt'l complaints, exceptas documented Allergic/Immunologic Allergic/Immunologic: Reports systems reviewed and no addt'l complaints, except as documented Intake Vital Signs 04/19/24 13:21 07/11/24 11:38 07/11/24 11:39 Height 5 ft 8 in 5 ft 8 in 5 ft 8 in Weight: 102.682 kg 109.316 kg BMI 34.4 36.6 BP 116/76 121/76 H Blood Pressure Location Lt brachial Lt brachial Position Sitting Sitting Respiration 18 18 Pulse 60 74 Pulse Source Monitor Monitor Temp 98.6 F 98.4 F Temperature Source Temporal Artery Temporal Artery Pulse Oximetry (%) 98 96 Oxygen Delivery Method room air room air Intake Is patient in pain?: No Allergies No Known Allergies Allergy (Verified 07/11/24 11:39) Medications ?Medication ?Instructions ?Recorded ?Confirmed ?Type loratadine 10 mg capsule (Allergy 10 mg PO QDAY 07/11/24 History Relief (loratadine)) Have you fallen in the past year?: No Central Venous Access Central Venous Access: No Laboratory Tests 01/12/24 01/26/24 02/02/24 09:24 10:12 13:45 Lactate Dehydrogenase 191 151 209 Tumor Marker AFP 5309.0 H 616.0 H 259.0 H HCG Beta Subunit 182 H 1 < 1 02/09/24 02/15/24 02/23/24 09:39 11:15 15:52 Lactate Dehydrogenase 160 161 176 Tumor Marker AFP 128.0 H 56.5 H 23.3 H HCG Beta Subunit < 1 < 1 < 1 03/01/24 03/07/24 03/14/24 16:37 09:45 10:37 Lactate Dehydrogenase 242 H 230 Tumor Marker AFP 11.4 H 7.9 H HCG Beta Subunit < 1 < 1 < 1 03/14/24 03/14/24 03/29/24 10:37 10:37 11:00 Lactate Dehydrogenase 161 189 Tumor Marker AFP 4.9 Pending 3.4 HCG Beta Subunit Pending < 1 04/12/24 07/04/24 07:35 10:20 Lactate Dehydrogenase 183 170 Tumor Marker AFP 2.7 2.9 HCG Beta Subunit < 1 < 1 Exam Physical Exam Narrative ECOG 0 Const alert, oriented x3, no apparent distress and healthy appearing Coding Level of Care Code Off vis,est,level 4 Exam Problem Focused Diagnoses Non-seminomatous cancer of right testis C62.91 Laterality: right Assessment and Plan Assessment and Plan (1) Non-seminomatous testicular cancer: Status: Acute Qualifiers: Laterality: right Qualified Code(s): C62.91 - Malignant neoplasm of right testis, unspecified whether descended or undescended Plan 28-year-old male with 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 Patient denied any use of marijuana in the past which can interfere with tumor marker measurements. His tumor marker is steadily declined to normalization. Plan: Based on NCCN guidelines advise surveillance: 1. Surveillance Year 1 (2024) 2 (2025) 3 (2026) 4 (2027) 5 (2028) H&P and marker every 3 months every 3 months every 4 to 6 months every [address] of the abdomen and pelvis every 4 months every 6 months annual annual annual chest x-ray every 4 months annual annual annual annual Impression and plan discussed with patient . Jorge Corbin MD Paper Cup Machine Operator, [facility] Divisions of Medical Oncology & Hematology Department of Internal Medicine [address], [place] [address] This note was generated using a voice recognition system software. Although itwas reviewed by the author prior to finalization, it may still contain incorrectwords, spelling, and punctuation that were not noted when reviewing prior to saving. If a clinically significant typo or inaccurately typed phrase is noted, please notify the author. Clinical Quality Measures Falls Risk Screening/Assistive Devices Have you fallen in the past year?: No 07/11/24 1149 <Electronically signed by Jorge hassan MD> Date _ Jorge Corbin MD Cosigner Signature: Date (if applicable) CC: ~ [facility] Work Phone: Reason for referral (narrative)No reason for referral information availableWTrumbull Regional Medical Center Work Phone: Summary Purpose Family History Relationship Condition Age at Onset Recorded Date/T juan carlos mother Malignant neoplasm Unknown Advance Directives No Advanced Directives Records FoundNo Advanced Directives Records Found Chief Complaint and Reason for Visit Chief Complaint Admit Date TESTICULAR CANCER January 26, 2024 9:27am 3 WEEK LABS February 15, 2024 11 :04am 4 WKS - LABS March 14, 2024 1 0:42am LAB April 12, 2024 11:0 0am 5 WKS - LABS PRIOR April 19, 2024 12: 27pm TESTICULA CANCER May 17, 2024 7:4 9am Reason for Visit Admit Date Non-seminomatous testicular cancer Decem 2023 9:27am Non-seminomatous testicular cancer Janua ry 2024 11:04am Non-seminomatous testicular cancer Febru gianni 2024 10:42am Non-seminomatous testicular cancer April 19, 2024 12:27pm Chief Complaint Admit Date 4 WKS - LABS March 14, 2024 1 0:42am 5 WKS - LABS PRIOR April 19, 2024 12: 27pm TESTICULA CANCER May 17, 2024 7:4 9am LAB July 04, 2024 11:00 am 3 MO - LABS 1 WK PRIOR July 11, 2024 11 :35am Reason for Visit Admit Date Non-seminomatous testicular cancer Febru gianni 2024 10:42am Non-seminomatous testicular cancer April 19, 2024 12:27pm Non-seminomatous testicular cancer July 11, 2024 11:35am Additional Source Comments Source Comments (unrecognize d section and content) In the event this informatio n is protected by the Federal Confidentiality of Alcohol and Drug Abuse Patient Records regulations: The Federal rules restrict any use of the information to criminally investigate or prosecute any alcohol or drug abuse patient.[facility] Reason for Visit (unrecogniz ed section and content) Reason Comments Ear Problem left x 1 month (unrecognized sect ion and content) No Status Records FoundNo Status Records Found INFORMATION SOURCE (unrecogn ized section and content) DATE CREATED AUTHOR 02/02/2024 [facility] DATE CREATED AUTHOR AUTHOR'S ORGANIZ ATION [facility]/20[facility] Care Teams (unrecognized sec tion and content) Team Status: Active Member Role Status Dates No Primary Care Physician Primary Care Provider Active Team Status: Inactive Member Role Status Dates No Primary Care Physician Primary Care Provider Active Start: January 26, 2024 End: January 26, 2024 Dr. Jorge Corbin MD Attending Provider Active Start: January 26, 2024 End: January 26, 2024 Dr. Maico Membreno MD Referring Provider Active Start: January 26, 2024 End: January 26, 2024 Team Status: Inactive Member Role Status Dates No Primary Care Physician Primary Care Provider Active Start: February 15, 2024 End: February 15, 2024 No Primary Care Physician Referring Provider Active Start: February 15, 2024 End: February 15, 2024 Dr. Jorge Corbin MD Attending Provider Active Start: February 15, 2024 End: February 15, 2024 Team Status: Inactive Member Role Status Dates No Primary Care Physician Primary Care Provider Active Start: March 01, 2024 End: March 01, 2024 Dr. Jorge Corbin MD Attending Provider Active Start: March 01, 2024 End: March 01, 2024 Dr. Jorge Corbin MD Referring Provider Active Start: March 01, 2024 End: March 01, 2024 Team Status: Inactive Member Role Status Dates No Primary Care Physician Primary Care Provider Active Start: March 14, 2024 End: March 14, 2024 No Primary Care Physician Referring Provider Active Start: March 14, 2024 End: March 14, 2024 Dr. Jorge Corbin MD Attending Provider Active Start: March 14, 2024 End: March 14, 2024 Team Status: Active Member Role Status Dates No Primary Care Physician Primary Care Provider Active Start: April 12, 2024 Dr. Jorge Corbin MD Attending Provider Active Start: April 12, 2024 Dr. Jorge Corbin MD Referring Provider Active Start: April 12, 2024 Team Status: Inactive Member Role Status Dates No Primary Care Physician Primary Care Provider Active Start: April 19, 2024 End: April 19, 2024 No Primary Care Physician Referring Provider Active Start: April 19, 2024 End: April 19, 2024 Dr. Jorge Corbin MD Attending Provider Active Start: April 19, 2024 End: April 19, 2024 Team Status: Inactive Member Role Status Dates No Primary Care Physician Primary Care Provider Active Start: May 17, 2024 End: May 17, 2024 Dr. Jorge Corbin MD Attending Provider Active Start: May 17, 2024 End: May 17, 2024 Dr. Jorge Corbin MD Referring Provider Active Start: May 17, 2024 End: May 17, 2024 Team Status: Active Member Role Status Dates No Primary Care Physician Primary Care Provider Active Start: July 04, 2024 Dr. Jorge Corbin MD Attending Provider Active Start: July 04, 2024 Dr. Jorge Corbin MD Referring Provider Active Start: July 04, 2024 Team Status: Inactive Member Role Status Dates No Primary Care Physician Primary Care Provider Active Start: July 11, 2024 End: July 11, 2024 No Primary Care Physician Referring Provider Active Start: July 11, 2024 End: July 11, 2024 Dr. Jorge Corbin MD Attending Provider Active Start: July 11, 2024 End: July 11, 2024 Goals (unrecognized section and content) Goals may be documented in a n alternate sectionGoals may be documented in an alternate section FOR RECORDS PERTAINING TO PATIENTS WHO ARE OR HAVE BEEN ENROLLED IN A CHEMICAL DEPENDENCY/SUBSTANCEABUSE PROGRAM, SOME INFORMATION MAY BE OMITTED. This clinical summary was aggregated from multiple sources. Caution should be exercised in using it in the provision of clinical care. This summary normalizes information from multiple sources, and as a consequence, information in this document may materially change the coding, format and clinical context of patient data. In addition, data may be omitted in some cases. CLINICAL DECISIONS SHOULD BE BASED ON THE PRIMARY CLINICAL RECORDS. [employer] provides no warranty or guarantee of the accuracy or completeness of information in this document.
== END | disposition home or self-care (01) ==
LOC: CT 07:05
PROVIDERS: Referring Provider Internal Medicine Hematology & Oncology; Visit Provider Internal Medicine Hematology & Oncology
DX: C62.91 Malignant neoplasm of right testis, unspecified whether descended or undescended (principal)
CPT/HCPCS: 71046; 74177; Q9967

== ENCOUNTER → 2024-12-20 | Outpatient (CLI) | payer BC, SELFPAY ==
--- NOTE | 2024-12-20 07:14 | CT_ITS ---
EXAM: CT Abdomen and Pelvis With Intravenous Contrast CLINICAL INDICATION: TESTUICULAR CANCER TECHNIQUE: Axial computed tomography images of the abdomen and pelvis with intravenous contrast. This CT exam was performed using one or more of the following dose reduction techniques: automated exposure control, adjustment of the mA and/or kV according to patient size, and/or use of iterative reconstruction technique. COMPARISON: CT Abdomen Pelvis dated 09/26/2024 FINDINGS: LUNG BASES: Unremarkable. No mass. No consolidation. ABDOMEN: LIVER: Hepatomegaly with fatty infiltration. GALLBLADDER AND BILE DUCTS: Unremarkable. No calcified stones. No ductal dilation. PANCREAS: Unremarkable. No mass. No ductal dilation. SPLEEN: Unremarkable. No splenomegaly. ADRENALS: Unremarkable. No mass. KIDNEYS AND URETERS: Unremarkable. No solid mass. No hydronephrosis. STOMACH AND BOWEL: Fecal retention in the colon consistent with constipation. No obstruction. No mucosal thickening. PELVIS: APPENDIX: No findings to suggest acute appendicitis. BLADDER: Unremarkable. No mass. REPRODUCTIVE: Unremarkable as visualized. ABDOMEN and PELVIS: INTRAPERITONEAL SPACE: Unremarkable. No free air. No significant fluid collection. BONES/JOINTS: No acute fracture. No dislocation. SOFT TISSUES: Umbilical hernia containing fat. VASCULATURE: Unremarkable. No abdominal aortic aneurysm. LYMPH NODES: Unremarkable. No enlarged lymph nodes. CT/Abdomen/Pelvis W IV Cont ONLY IMPRESSION: 1. Stable exam. No evidence of malignancy or adenopathy. 2. Hepatomegaly with fatty infiltration. 3. Fecal retention in the colon consistent with constipation. 4. Umbilical hernia containing fat. Reading Location: [id number]
--- NOTE | 2024-12-20 07:26 | RAD_ITS ---
PROCEDURE: CHEST PA AND LATERAL 12/20/2024 REASON FOR EXAM: TESTICULAR CANCER TECHNIQUE: Procedure Code: RADCXR Modality: DX Procedure: CHEST PA AND LATERAL COMPARISON: Chest x-ray study dated 09/26/2024 FINDINGS: Heart size and configuration within normal limits. Pulmonary vasculature and hilar structures are unremarkable. Trachea is midline. Lungs are expanded and clear without evidence of mass, pneumothorax, atelectasis, consolidation, effusion or pneumonic infiltrate. Bony thorax is grossly unremarkable. RAD/Chest PA and Lateral IMPRESSION: No acute cardiopulmonary process is identified radiographically. Reading Location: [id number]
== END | disposition home or self-care (01) ==
PROVIDERS: Referring Provider Internal Medicine Hematology & Oncology; Visit Provider Internal Medicine Hematology & Oncology
DX: C62.91 Malignant neoplasm of right testis, unspecified whether descended or undescended (principal)
CPT/HCPCS: 71046; 74177; Q9967